=== PATIENT | female | born 1940 | race Caucasian/White ===

== ENCOUNTER 2016-09-03 10:01 | Emergency (ER) | payer MEDICARE, BC ==
[2016-09-03 10:22] VITALS: BP 138/84
--- NOTE | 2016-09-03 11:57 | EDM.PDOC ---
[id number] Complaint: RECTAL BLEEDING Time Seen by Provider: 09/03/16 10:30 Source of Information: Reports: Patient, Provider History Limitations: Reports: No Limitations - History of Present Illness INITIAL COMMENTS - FREE TEXT/NARRATIVE: 76-year-old female with a known history of hemorrhoids developed some diarrhea and some slight abdominal cramping overnight and had 3 episodes of ara bloody stool. It was bright red. She went into the walk-in clinic this morning, a rectal exam found that she did have rectal blood present so she was sent to the emergency room. She has no pain, the cramping is gone. No fevers or chills. She remembers having a colonoscopy but it's probably been 10 years. Severity: Moderate Associated Symptoms: Denies: Diaphoresis, Fever/Chills, Nausea/Vomiting, Shortness of Breath, Weakness - Related Data Allergies Allergy/AdvReac Type Severity Reaction Status Date / Time gluten Allergy unknown Verified 09/03/16 10:40 wheat Allergy Other Verified 09/03/16 10:40 Home Meds: Home Meds Albuterol Sulfate [Albuterol Sulfate HFA] 2 puff IH Q6HR PRN 01/05/13 [History] Aspirin [Halfprin] 81 mg PO DAILY 01/05/13 [History] Cholecalciferol (Vitamin D3) [Vitamin D3] 1,000 unit PO DAILY 01/05/13 [History] Fluticasone Propionate [Flovent] 50 mcg IH DAILY 01/05/13 [History] Furosemide [Lasix] 20 mg PO DAILY 01/05/13 [History] Hydrocodone/Acetaminophen [Hydrocodon-Acetaminophen 5-500] 1 tab PO Q4H PRN 05/19 [History] Isosorbide Mononitrate [Imdur] 30 mg PO DAILY 01/05/13 [History] Loratadine [Claritin] 10 mg PO DAILY 01/05/13 [History] Omeprazole 20 mg PO DAILY 01/05/13 [History] Venlafaxine [Effexor XR] 75 mg PO DAILY 01/05/13 [History] Losartan [Cozaar] 12.5 mg PO BID 11/24/13 [History] Montelukast [Singulair] 10 mg PO DAILY 11/24/13 [History] Simvastatin [Zocor] 20 mg PO BEDTIME 11/24/13 [History] Allopurinol [Zyloprim] 100 mg PO DAILY 04/23/16 [History] Past Medical History HEENT History: Reports: Cataract, Hard of Hearing, Impaired Vision, Sinusitis, Other (See Below) Other HEENT History: meneris Cardiovascular History: Reports: Heart Murmur, Hypertension Gastrointestinal History: Reports: Cholelithiasis, Chronic Constipation, Chronic Diarrhea, GERD, Other (See Below) Other Gastrointestinal History: barrettes esophagus Genitourinary History: Reports: None GORE INSERTER History: Reports: , Other (See Below) Other OB/BYN History: fibroid tumor Musculoskeletal History: Reports: Arthritis, Back Pain, Chronic, Gout Endocrine/Metabolic History: Reports: Obesity/BMI 30+ Hematologic History: Reports: Iron Deficiency - Infectious Disease History Infectious Disease History: Reports: Chicken Pox, Measles, Mumps - Past Surgical History HEENT Surgical History: Reports: Cataract Surgery Female Surgical History: Reports: Hysterectomy, Other (See Below) Musculoskeletal Surgical History: Reports: Hip Replacement Social & Family History - Tobacco Use Smoking Status *Q: Never Smoker Second Hand Smoke Exposure: No - Caffeine Use Caffeine Use: Reports: Coffee, Tea - Alcohol Use Days Per Week of Alcohol Use: 0 - Recreational Drug Use Recreational Drug Use: No ED ROS GENERAL - Review of Systems Review Of Systems: See Below Constitutional: Denies: Fever, Chills, Malaise Respiratory: Denies: Shortness of Breath, Cough Cardiovascular: Denies: Chest Pain GI/Abdominal: Reports: Abdominal Pain (Some cramping over night, now better), Diarrhea, Hematochezia. Denies: Nausea, Vomiting : Reports: No Symptoms Skin: Reports: No Symptoms ED EXAM, GI/ABD - Physical Exam Exam: See Below Exam Limited By: No Limitations General Appearance: Alert, No Apparent Distress Eyes: Bilateral: Normal Appearance (No jaundice) Respiratory/Chest: No Respiratory Distress, Lungs Clear Cardiovascular: Regular Rate, Rhythm GI/Abdominal: Soft, Non-Tender Rectal (Female) Exam: Deferred (Rectal exam was not repeated) Neurological: Alert, Oriented Psychiatric: Anxious Skin Exam: Warm, Dry Course - Vital Signs Last Recorded V/S: Last Vital Signs Temp 98 F 09/03/16 10:36 Pulse 71 09/03/16 10:36 Resp 20 09/03/16 10:36 BP 138/84 09/03/16 10:36 Pulse Ox 96 09/03/16 10:36 - Orders/Labs/Meds Labs: Laboratory Tests 09/03/16 09/03/16 09/03/16 Range/Units 11:13 11:13 11:13 WBC 12.7 H (4.5-11.0) K/uL RBC 4.25 (3.30-5.50) M/uL Hgb 13.5 (12.0-15.0) g/dL Hct 40.4 (36.0-48.0) % MCV 95 (80-98) fL MCH 32 H (27-31) pg MCHC 33 (32-36) % Plt Count 218 (150-400) K/uL Neut % (Auto) 79 H (36-66) % Lymph % (Auto) 13 L (24-44) % [place] % (Auto) 8 H (2-6) % Eos % (Auto) 0 L (2-4) % Baso % (Auto) 0 (0-1) % PT 10.5 (9.5-12.0) sec INR 0.99 (0.80-1.20) Sodium 133 L (140-148) mmol/L Potassium 3.8 (3.6-5.2) mmol/L Chloride 100 (100-108) mmol/L Carbon Dioxide 26 (21-32) mmol/L Anion Gap 10.8 (5.0-14.0) mmol/L BUN 18 (7-18) mg/dL Creatinine 1.2 H (0.6-1.0) mg/dL Est Cr Clr Drug Dosing 28.20 mL/min Estimated GFR (MDRD) 44 L (>60) Glucose 96 (74-106) mg/dL Calcium 8.8 (8.5-10.1) mg/dL Total Bilirubin 0.4 (0.2-1.0) mg/dL AST 29 (15-37) U/L ALT 30 (12-78) U/L Alkaline Phosphatase 92 (46-116) U/L Total Protein 7.6 (6.4-8.2) g/dL Albumin 3.4 (3.4-5.0) g/dL Globulin 4.2 H (2.3-3.5) g/dL Albumin/Globulin Ratio 0.8 L (1.2-2.2) - Re-Assessments/Exams Free Text/Narrative Re-Assessment/Exam: 09/03/16 11:53 A CBC was obtained that showed a normal hemoglobin, 13.5, which is consistent with levels drawn earlier this year at the clinic. INR was 0.99, patient is not anticoagulated does take an aspirin daily. She was observed in the emergency room for over 2 hours and had no additional diarrhea or rectal bleeding. Her case was discussed with surgery, and she will be set up for a colonoscopy on Thursday. She'll be discharged home and can return sooner if bleeding recurs or worsens, or if she develops more pain or other concerns. Departure - Departure Time of Disposition: 12:13 Disposition: Home, Self-Care 01 Condition: good Clinical Impression: Rectal bleed, Abdominal pain - Discharge Information Instructions: Gastrointestinal Bleeding Referrals: Annelise Abdalla PA [Primary Care Provider] - Forms: ED Department Discharge Care Plan Goals: Preparation for colonoscopy on Thursday as recommended. You may still continue to get some diarrheal stool or bleeding, but return anytime if worsening or concerns.
== END 2016-09-03 12:12 | disposition home or self-care (01) ==
LOC: JP.ED 10:01
DX: K62.5 Hemorrhage of anus and rectum (principal); R10.9 Unspecified abdominal pain; I10 Essential (primary) hypertension; K21.9 Gastro-esophageal reflux disease without esophagitis; E66.9 Obesity, unspecified; Z68.30 Body mass index [BMI] 30.0-30.9, adult; Z98.49 Cataract extraction status, unspecified eye; Z90.710 Acquired absence of both cervix and uterus; Z96.649 Presence of unspecified artificial hip joint; Z79.899 Other long term (current) drug therapy; Z79.82 Long term (current) use of aspirin; Z91.018 Allergy to other foods
CPT/HCPCS: 36415; 80053; 85025; 85610; 99283; 99284

== ENCOUNTER 2016-09-05 08:48 | Day surgery (SDC) | payer MEDICARE, BC ==
[2016-09-05] MEDS ORDERED: fentaNYL 100 MCG/2 ML SDV ONE (09:29)
[2016-09-05] MEDS ORDERED: Propofol 200 MG/20 ML SDV ONE (09:29)
[2016-09-05] MEDS ORDERED: Midazolam 1 MG/ML 2 ML SDV ONE (09:29)
[2016-09-05] MEDS ORDERED: Lactated Ringers 1,000 ML IV SCH (09:30)
[2016-09-05 12:55] VITALS: BP 143/83
--- NOTE | 2016-09-07 10:02 | OR ---
DATE OF PROCEDURE: 09/05/2016 PREOPERATIVE DIAGNOSES: Blood in stool. POSTOPERATIVE DIAGNOSES: Diverticulosis, splenic flexure colitis, and blood in stool. PROCEDURE PERFORMED: Colonoscopy to the cecum with biopsy of the splenic flexure colitis. SURGEON: Carloz Hurt MD ANESTHESIA: IV anesthesia with monitored anesthesia care. INDICATIONS: This 76-year-old white female experienced some bloody stools two days ago. She presents to the emergency room. She was there for several hours and had no more bleeding. She was released and referred for a colonoscopy today. She underwent a bowel prep yesterday. She said there was no more blood seen with the bowel prep. She says her last colonoscopic exam was done nine years ago. I counseled her for a colonoscopy with possible biopsy and/or polypectomy including risks and alternatives, and she gave her informed consent to proceed. DESCRIPTION OF PROCEDURE: The patient was placed in the left lateral decubitus position. IV anesthesia was administered by the Anesthesia Service. Time-out was held. A rectal exam performed which was unremarkable. The flexible video Olympus colonoscope was introduced through her anus, up her rectum, and out her colon all way to the cecum. En route, we saw a few scattered left-sided diverticula. There was no bleeding or inflammation associated with them. In the splenic flexure area, we encountered a short area of colitis. Once the cecum was reached, the scope was slowly withdrawn. We saw no additional lesions. We did obtain several biopsies of the area of colitis at the splenic flexure. The scope was retroflexed in the rectum with the distal rectum appearing unremarkable. The scope was straightened and removed. She tolerated the procedure well. Carloz Hurt MD /[id number] MTDD
== END 2016-09-05 13:20 | disposition home or self-care (01) ==
LOC: JP.SDS 08:48
PROVIDERS: ATTEND Surgery
DX: K52.9 Noninfective gastroenteritis and colitis, unspecified (principal); K62.89 Other specified diseases of anus and rectum; J44.9 Chronic obstructive pulmonary disease, unspecified; E11.22 Type 2 diabetes mellitus with diabetic chronic kidney disease; I12.9 Hypertensive chronic kidney disease with stage 1 through stage 4 chronic kidney disease, or unspecified chronic kidney disease; N18.9 Chronic kidney disease, unspecified; Z91.018 Allergy to other foods; Z88.8 Allergy status to other drugs, medicaments and biological substances; K21.9 Gastro-esophageal reflux disease without esophagitis
CPT/HCPCS: 45380; J2250; J2704; J3010; J7120; 88305

== ENCOUNTER 2018-08-11 07:29 | Outpatient (CLI) | payer MEDICARE, BC ==
[~2018-08-11 07:29] MED LIST: Bupivacaine 0.25% 10 ML SDV ONE; Bupivacaine 0.5% 30 ML SDV ONE; methylPREDNISolone Acetate 40 MG/ML SDV ONE
[2018-08-11 08:11] VITALS: BP 142/81; PULSE 53
--- NOTE | 2018-08-11 18:25 | ANES ---
DATE OF SERVICE: 08/11/2018 INDICATIONS: Karime is a 77-year-old female patient referred to us by Annelise Abdalla for epidural steroid injection. Karime has these every 2 months, so is well aware of the risks and benefits related to an ALINA and wishes to proceed with an epidural steroid injection today. Please refer to the doctor's notes for ICD-10 code and diagnosis. TECHNIQUE: The patient was then sat at the edge of bed. Betadine prep x3 to the lumbar region was done. Sterile drape was placed. Lidocaine skin wheal and deep was done. A 17- gauge Tuohy needle was inserted at approximately the L5-S1 position. Loss of resistance was achieved. Negative paresthesia, negative heme, and negative CSF were noted. I then proceeded to give the patient 7 mL of sterile normal saline with 2 mL of 0.25% Sensorcaine and 40 mg of Depo-Medrol. The Tuohy needle was then flushed and withdrawn. Sterile drape was taken down, Betadine was cleaned off her back, and a Band-Aid was applied to the puncture site for hemostasis. The patient tolerated the procedure without difficulty. Please refer to the nurse's notes. After the appropriate amount of time, the patient will be discharged per ACU protocol. Hernan Johnson CRNA /[id number]
== END 2018-08-11 08:40 | disposition home or self-care (01) ==
LOC: JP.PAIN 07:29
PROVIDERS: ATTEND Physician Assistant
DX: M79.10 Myalgia, unspecified site (principal); M54.5 Low back pain
CPT/HCPCS: 62322; J1030; J3490

== ENCOUNTER 2019-09-21 12:21 | Emergency (ER) | payer MEDICARE, BC ==
[2019-09-21] MEDS ORDERED: Aspirin 81 MG Tab.Chew PO ONE (14:18)
--- NOTE | 2019-09-21 14:24 | EDM.PDOC ---
ED HPI GENERAL MEDICAL PROBLEM - General Chief Complaint: General Stated Complaint: UPSET SHE AND SON HAD A DISAGREEMENT Time Seen by Provider: 09/21/19 14:07 Source of Information: Reports: Patient, RN Notes Reviewed History Limitations: Reports: No Limitations - History of Present Illness INITIAL COMMENTS - FREE TEXT/NARRATIVE: 79-year-old female presents emergency department a complaint of chest pain, she has had some chest pressure on and off for the last couple of days she states is very short in duration no nausea or vomiting no diaphoresis no dyspnea no history of cardiac events a remote smoking history as a teenager - Related Data Allergies Allergy/AdvReac Type Severity Reaction Status Date / Time gluten Allergy Rash Verified 09/21/19 12:41 wheat Allergy Rash Verified 09/21/19 12:41 Home Meds: Home Meds Albuterol Sulfate [Albuterol Sulfate HFA] 2 puff IH Q6HR PRN 01/05/13 [History] Aspirin [Halfprin] 81 mg PO DAILY 01/05/13 [History] Cholecalciferol (Vitamin D3) [Vitamin D3] 1,000 unit PO DAILY 01/05/13 [History] Fluticasone Propionate [Flovent] 2 sprays IH DAILY 01/05/13 [History] Furosemide [Lasix] 10 mg PO DAILY 01/05/13 [History] Hydrocodone/Acetaminophen [Hydrocodon-Acetaminophen 5-500] 1 tab PO Q4H PRN 01/05/13 [History] Isosorbide Mononitrate [Imdur] 15 mg PO DAILY 01/05/13 [History] Loratadine [Claritin] 10 mg PO DAILY PRN 01/05/13 [History] Omeprazole 20 mg PO DAILY 01/05/13 [History] Venlafaxine [Effexor XR] 75 mg PO DAILY 01/05/13 [History] Montelukast [Singulair] 10 mg PO DAILY 11/24/13 [History] Simvastatin [Zocor] 20 mg PO BEDTIME 11/24/13 [History] Allopurinol [Zyloprim] 100 mg PO DAILY 04/23/16 [History] Betamethasone Dipropionate [Diprosone 0.05% Oint] 1 applic TOP BID 09/28/17 [History] Metoprolol Tartrate 25 mg PO BID 06/30/18 [History] Mupirocin Oint [Bactroban Oint] 1 cm TOP TID PRN 06/30/18 [History] Past Medical History HEENT History: Reports: Cataract, Hard of Hearing, Impaired Vision, Sinusitis, Other (See Below) Other HEENT History: meneris Cardiovascular History: Reports: Heart Murmur, Hypertension Other Respiratory History: STATES HAS NO LUNG DISEASE BUT ON INHALERS Gastrointestinal History: Reports: Celiac Disease, Cholelithiasis, Chronic Constipation, Chronic Diarrhea, GERD, Other (See Below) Other Gastrointestinal History: barrettes esophagus FACE BOSS History: Reports: Fibroids, , Other (See Below) Other FACE BOSS History: fibroid tumor Musculoskeletal History: Reports: Arthritis, Back Pain, Chronic, Gout Neurological History: Reports: Headaches, Chronic, Other (See Below) Other Neuro History: PT RECEIVES EPIDURAL STEROID INJECTIONS AND TRIGGER POINT INJECTIONS Psychiatric History: Reports: Anxiety, Depression Endocrine/Metabolic History: Reports: Obesity/BMI 30+ Hematologic History: Reports: Blood Transfusion(s), Iron Deficiency Immunologic History: Reports: None Oncologic (Cancer) History: Reports: None Dermatologic History: Reports: Other (See Below) Other Dermatologic History: rash from gluten - Infectious Disease History Infectious Disease History: Reports: Chicken Pox, Measles, Mumps - Past Surgical History Head Surgeries/Procedures: Reports: None HEENT Surgical History: Reports: Cataract Surgery Cardiovascular Surgical History: Reports: None Respiratory Surgical History: Reports: None GI Surgical History: Reports: Colonoscopy, EGD Female Surgical History: Reports: Hysterectomy, Other (See Below) Other Female Surgeries/Procedures: stent in right kidney Endocrine Surgical History: Reports: None Neurological Surgical History: Reports: None Musculoskeletal Surgical History: Reports: Hip Replacement Dermatological Surgical History: Reports: Skin Biopsy Social & Family History - Tobacco Use Smoking Status *Q: Former Smoker Used Tobacco, but Quit: Yes Month/Year Tobacco Last Used: 60 YEARS AGO Second Hand Smoke Exposure: No - Caffeine Use Caffeine Use: Reports: Coffee, Soda - Recreational Drug Use Recreational Drug Use: No ED ROS GENERAL - Review of Systems Review Of Systems: See Below Constitutional: Reports: No Symptoms HEENT: Reports: No Symptoms Respiratory: Reports: No Symptoms Cardiovascular: Reports: Chest Pain GI/Abdominal: Reports: No Symptoms : Reports: No Symptoms Musculoskeletal: Reports: No Symptoms ED EXAM, GENERAL - Physical Exam Exam: See Below Exam Limited By: No Limitations General Appearance: Alert, WD/WN, No Apparent Distress Respiratory/Chest: No Respiratory Distress, Lungs Clear, Normal Breath Sounds, No Accessory Muscle Use, Chest Non-Tender Cardiovascular: Regular Rate, Rhythm, No Murmur GI/Abdominal: Soft, Non-Tender Extremities: No Pedal Edema Course - Vital Signs Last Recorded V/S: Last Vital Signs Temp 97.5 F 09/21/19 13:09 Pulse 89 09/21/19 17:12 Resp 16 09/21/19 17:12 BP 193/114 H 09/21/19 17:12 Pulse Ox 95 09/21/19 17:12 - Orders/Labs/Meds Orders: Active Orders 24 hr Category Date Time Status Cardiac Monitoring [RC] .As Directed Care 09/21/19 14:19 Active EKG Documentation Completion [RC] ASDIRECTED Care 09/21/19 14:19 Active Chest 2V [CR] Stat Exams 09/21/19 14:19 Taken EKG 12 Lead [EK] Stat Ther 09/21/19 14:19 Ordered Labs: Laboratory Tests 09/21/19 09/21/19 09/21/19 Range/Units 14:18 14:25 16:50 WBC 6.0 (4.5-11.0) K/uL RBC 4.43 (3.30-5.50) M/uL Hgb 13.8 (12.0-15.0) g/dL Hct 43.4 (36.0-48.0) % MCV 98 (80-98) fL MCH 31 (27-31) pg MCHC 32 (32-36) % Plt Count 217 (150-400) K/uL Neut % (Auto) 65 (36-66) % Lymph % (Auto) 23 L (24-44) % [place] % (Auto) 10 H (2-6) % Eos % (Auto) 1 L (2-4) % Baso % (Auto) 1 (0-1) % Sodium 139 L (140-148) mmol/L Potassium 4.1 (3.6-5.2) mmol/L Chloride 102 (100-108) mmol/L Carbon Dioxide 29 (21-32) mmol/L Anion Gap 12.1 (5.0-14.0) mmol/L BUN 14 (7-18) mg/dL Creatinine 1.2 H (0.6-1.0) mg/dL Est Cr Clr Drug Dosing 26.86 mL/min Estimated GFR (MDRD) 43 L (>60) Glucose 94 (74-106) mg/dL Calcium 9.2 (8.5-10.1) mg/dL Total Bilirubin 0.4 (0.2-1.0) mg/dL AST 33 (15-37) U/L ALT 39 (12-78) U/L Alkaline Phosphatase 113 (46-116) U/L Troponin I 0.032 0.035 (0.000-0.056) ng/mL Total Protein 7.8 (6.4-8.2) g/dL Albumin 3.9 (3.4-5.0) g/dL Globulin 3.9 H (2.3-3.5) g/dL Albumin/Globulin Ratio 1.0 L (1.2-2.2) Meds: Medications Discontinued Medications Generic Name Dose Route Start Last Admin Trade Name Freq PRN Reason Stop Dose Admin Aspirin 324 mg 09/21/19 14:18 09/21/19 14:32 Aspirin PO 09/21/19 14:19 324 mg ONETIME ONE Administration Departure - Departure Time of Disposition: 17:21 Disposition: Home, Self-Care 01 Condition: Fair Clinical Impression: Atypical chest pain - Discharge Information Instructions: Nonspecific Chest Pain, Adult Referrals: Annelise Abdalla PA [Primary Care Provider] - Forms: ED Department Discharge Additional Instructions: Please followup with your primary care provider in 3-5 days if not better, please call return to the emergency department with worsening of symptoms. Sepsis Event Note (ED) - Evaluation Sepsis Screening Result: No Definite Risk - Focused Exam Vital Signs: Vital Signs Temp Pulse Resp BP Pulse Ox 09/21/19 17:12 89 16 193/114 H 95 09/21/19 15:10 90 18 184/109 H 95 09/21/19 14:10 91 16 195/93 H 97 09/21/19 13:10 82 18 183/90 H 95 09/21/19 13:09 97.5 F 84 18 183/90 H 97 09/21/19 12:53 98 F 79 16 178/91 H 88 L - My Orders Last 24 Hours: My Active Orders 09/21/19 14:19 Cardiac Monitoring [RC] .As Directed EKG Documentation Completion [RC] ASDIRECTED Chest 2V [CR] Stat EKG 12 Lead [EK] Stat - Assessment/Plan Last 24 Hours: My Active Orders 09/21/19 14:19 Cardiac Monitoring [RC] .As Directed EKG Documentation Completion [RC] ASDIRECTED Chest 2V [CR] Stat EKG 12 Lead [EK] Stat Plan: Assessment Acuity = acute Site and laterality = atypical chest pain Etiology = unknown Manifestations = none Location of injury = Home Lab values = CBC, CMP within normal limits troponin negative x2 EKG does demonstrate a right bundle branch block no old EKGs available, chest x-ray I did review films myself I cannot appreciate any acute process, the official read from radiology is pending Plan She remained asymptomatic while in the emergency department however follow-up with her primary care in the next 3 to 5 days for further evaluation This note was dictated using [employer] voice recognition software please call with any questions on syntax or grammar.
[2019-09-21 17:14] VITALS: BP 193/114; PULSE 89
--- NOTE | 2019-09-22 09:58 | CR ---
CHEST: 2 view CLINICAL HISTORY:Chest pain COMPARISON:2014 FINDINGS: The heart size, pulmonary vascularity and hilar structures are normal. No infiltrate effusion or pneumothorax is seen. There are atherosclerotic changes in the aorta. There is a large retrocardiac hiatal hernia. Lungs are hyperaerated. IMPRESSION: No acute cardiopulmonary process.
== END 2019-09-21 17:36 | disposition home or self-care (01) ==
LOC: JP.ED 12:21
DX: R07.89 Other chest pain (principal); I10 Essential (primary) hypertension; M10.9 Gout, unspecified; F41.9 Anxiety disorder, unspecified; F32.9 Major depressive disorder, single episode, unspecified; E66.9 Obesity, unspecified; Z68.30 Body mass index [BMI] 30.0-30.9, adult; K21.9 Gastro-esophageal reflux disease without esophagitis; Z91.048 Other nonmedicinal substance allergy status; Z91.018 Allergy to other foods; Z79.82 Long term (current) use of aspirin; Z79.899 Other long term (current) drug therapy; Z87.891 Personal history of nicotine dependence
CPT/HCPCS: 36415; 71046; 80053; 84484; 85025; 93005; 99285; A9270; 93010; 99284

== ENCOUNTER 2021-02-28 11:56 | Emergency (ER) | payer MEDICARE, BC ==
--- NOTE | 2021-02-28 12:13 | EDM.PDOC ---
ED HPI GENERAL MEDICAL PROBLEM - General Chief Complaint: General Stated Complaint: CONFUSION FOR PAST 2 MONTHS Time Seen by Provider: 02/28/21 12:32 Source of Information: Reports: Patient, Family, RN Notes Reviewed History Limitations: Reports: No Limitations - History of Present Illness INITIAL COMMENTS - FREE TEXT/NARRATIVE: 80-year-old female presents emergency department today complaint of frequency of urination, her family is present they state she is here because they have noticed she is more confused that she has a little bit of change in behavior she is falling more seems to be more weak and she is developed a shuffling gait which is all new. When I tried to pin them down on how long this has been going on they do admit the changes have been going on for the last year - Related Data Allergies Allergy/AdvReac Type Severity Reaction Status Date / Time gluten Allergy Rash Verified 01/02/21 08:45 wheat Allergy Rash Verified 01/02/21 08:45 Home Meds: Home Meds Aspirin [Halfprin] 81 mg PO DAILY 01/05/13 [History] Cholecalciferol (Vitamin D3) [Vitamin D3] 1,000 unit PO DAILY 01/05/13 [History] Fluticasone Propionate [Flovent] 2 sprays IH DAILY 01/05/13 [History] Furosemide [Lasix] 20 mg PO DAILY PRN 01/05/13 [History] Hydrocodone/Acetaminophen [Hydrocodon-Acetaminophen 5-500] 1 tab PO BID PRN 01/05/13 [History] Loratadine [Claritin] 10 mg PO DAILY PRN 01/05/13 [History] Omeprazole 20 mg PO DAILY 01/05/13 [History] Venlafaxine [Effexor XR] 150 mg PO DAILY 01/05/13 [History] Montelukast [Singulair] 10 mg PO DAILY 11/24/13 [History] Simvastatin [Zocor] 20 mg PO BEDTIME 11/24/13 [History] Allopurinol [Zyloprim] 100 mg PO DAILY 04/23/16 [History] Betamethasone Dipropionate [Diprosone 0.05% Oint] 1 applic TOP BID 09/28/17 [History] Metoprolol Tartrate 25 mg PO BID 06/30/18 [History] Mupirocin Oint [Bactroban Oint] 1 cm TOP TID PRN 06/30/18 [History] Albuterol [Ventolin HFA] 1 - 2 inh INH Q4H PRN 02/01/20 [History] Gabapentin [Neurontin] 100 mg PO BID 02/01/20 [History] Losartan [Cozaar] 25 mg PO DAILY 08/29/20 [History] Past Medical History HEENT History: Reports: Cataract, Hard of Hearing, Impaired Vision, Sinusitis, Other (See Below) Other HEENT History: meneris Cardiovascular History: Reports: Heart Murmur, Hypertension Other Respiratory History: STATES HAS NO LUNG DISEASE BUT ON INHALERS Gastrointestinal History: Reports: Celiac Disease, Cholelithiasis, Chronic Constipation, Chronic Diarrhea, GERD, Other (See Below) Other Gastrointestinal History: barrettes esophagus 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: Reports: Fibroids, , Other (See Below) 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: fibroid tumor Musculoskeletal History: Reports: Arthritis, Back Pain, Chronic, Gout Neurological History: Reports: Headaches, Chronic, Other (See Below) Other Neuro History: PT RECEIVES EPIDURAL STEROID INJECTIONS AND TRIGGER POINT INJECTIONS Psychiatric History: Reports: Anxiety, Depression Endocrine/Metabolic History: Reports: Obesity/BMI 30+ Hematologic History: Reports: Blood Transfusion(s), Iron Deficiency Immunologic History: Reports: None Oncologic (Cancer) History: Reports: None Dermatologic History: Reports: Other (See Below) Other Dermatologic History: rash from gluten - Infectious Disease History Infectious Disease History: Reports: Chicken Pox, Measles, Mumps - Past Surgical History Head Surgeries/Procedures: Reports: None HEENT Surgical History: Reports: Cataract Surgery Cardiovascular Surgical History: Reports: None Respiratory Surgical History: Reports: None GI Surgical History: Reports: Colonoscopy, EGD Female Surgical History: Reports: Hysterectomy, Other (See Below) Other Female Surgeries/Procedures: stent in right kidney Endocrine Surgical History: Reports: None Neurological Surgical History: Reports: None Musculoskeletal Surgical History: Reports: Hip Replacement Dermatological Surgical History: Reports: Skin Biopsy Social & Family History - Tobacco Use Tobacco Use Status *Q: Never Tobacco User - Caffeine Use Caffeine Use: Reports: Coffee ED ROS GENERAL - Review of Systems Review Of Systems: See Below Constitutional: Reports: No Symptoms HEENT: Reports: No Symptoms Respiratory: Reports: No Symptoms Cardiovascular: Reports: No Symptoms GI/Abdominal: Reports: No Symptoms : Reports: Frequency Musculoskeletal: Reports: No Symptoms Neurological: Reports: Confusion ED EXAM, GENERAL - Physical Exam Exam: See Below Exam Limited By: No Limitations General Appearance: Alert, WD/WN, No Apparent Distress, Other (Orientated x3) Eye Exam: Bilateral Eye: EOMI, Normal Inspection, PERRL Ears: Normal External Exam, Normal Canal, Hearing Grossly Normal, Normal TMs Nose: Normal Inspection, Normal Mucosa, No Blood Throat/Mouth: Normal Inspection, Normal Lips, Normal Teeth, Normal Gums, Normal Oropharynx, Normal Voice, No Airway Compromise Head: Atraumatic, Normocephalic Neck: Normal Inspection, Supple, Non-Tender, Full Range of Motion Respiratory/Chest: No Respiratory Distress, Lungs Clear, Normal Breath Sounds, No Accessory Muscle Use, Chest Non-Tender Cardiovascular: Regular Rate, Rhythm, No Murmur GI/Abdominal: Soft, Non-Tender Back Exam: Normal Inspection, Full Range of Motion. No: CVA Tenderness (R), CVA Tenderness (L) Extremities: Normal Inspection, Normal Range of Motion, Non-Tender, No Pedal Edema Neurological: Alert, Oriented, CN II-XII Intact, Normal Gait, Normal Reflexes, No Motor/Sensory Deficits Psychiatric: Normal Affect, Normal Mood Skin Exam: Warm, Dry Lymphatic: No Adenopathy #1 Interpretation EKG Date: 02/28/21 Time: 13:39 Rhythm: NSR [place]: Normal P-Wave: Present QRS: Normal ST-T: Normal QT: Normal Comparison: NA - No Prior EKG Course - Vital Signs Last Recorded V/S: Last Vital Signs Temp 95.3 F L 02/28/21 12:05 Pulse 59 L 02/28/21 14:15 Resp 26 H 02/28/21 14:15 BP 166/76 H 02/28/21 14:15 Pulse Ox 91 L 02/28/21 14:15 - Orders/Labs/Meds Orders: Active Orders 24 hr Category Date Time Status Isolation [COMM] Stat Oth 02/28/21 13:14 Ordered EKG 12 Lead [EK] Stat Ther 02/28/21 13:27 Ordered Labs: Laboratory Tests 02/28/21 02/28/21 02/28/21 Range/Units 12:30 12:41 12:41 WBC 6.3 (4.5-11.0) K/uL RBC 4.15 (3.30-5.50) M/uL Hgb 12.6 (12.0-15.0) g/dL Hct 37.9 (36.0-48.0) % MCV 91 (80-98) fL MCH 30 (27-31) pg MCHC 33 (32-36) % Plt Count 260 (150-400) K/uL Neut % (Auto) 78.7 H (36-66) % Lymph % (Auto) 12.0 L (24-44) % [place] % (Auto) 9.0 H (2-6) % Eos % (Auto) 0.0 L (2-4) % Baso % (Auto) 0.3 (0-1) % Sodium 138 L (140-148) mmol/L Potassium 4.2 (3.6-5.2) mmol/L Chloride 100 (100-108) mmol/L Carbon Dioxide 26 (21-32) mmol/L Anion Gap 16.2 H (5.0-14.0) mmol/L BUN 30 H D (7-18) mg/dL Creatinine 1.6 H (0.6-1.0) mg/dL Est Cr Clr Drug Dosing 19.81 mL/min Estimated GFR (MDRD) 31 L (>60) Glucose 121 H (74-106) mg/dL Lactic Acid (0.4-2.0) mmol/L Calcium 8.6 (8.5-10.1) mg/dL Total Bilirubin 0.5 (0.2-1.0) mg/dL AST 42 H (15-37) U/L ALT 31 (12-78) U/L Alkaline Phosphatase 88 (46-116) U/L Troponin I 0.105 H* (0.000-0.056) ng/mL NT-Pro-B Natriuret Pep (5-450) pg/mL Total Protein 7.7 (6.4-8.2) g/dL Albumin 3.3 L (3.4-5.0) g/dL Globulin 4.4 H (2.3-3.5) g/dL Albumin/Globulin Ratio 0.8 L (1.2-2.2) TSH, Ultra Sensitive 1.965 (0.358-3.740) uIU/mL Urine Color Yellow (YELLOW) Urine Appearance Clear (CLEAR) Urine pH 5.5 (5.0-8.0) Ur Specific [place] 1.025 (1.008-1.030) Urine Protein 100 H (NEGATIVE) mg/dL Urine Glucose (UA) Negative (NEGATIVE) mg/dL Urine Ketones Negative (NEGATIVE) mg/dL Urine Occult Blood Negative (NEGATIVE) Urine Nitrite Negative (NEGATIVE) Urine Bilirubin Negative (NEGATIVE) Urine Urobilinogen 0.2 (0.2-1.0) EU/dL Ur Leukocyte Esterase Negative (NEGATIVE) Urine RBC Not seen (0-5) Urine WBC Not seen (0-5) Ur Epithelial Cells Not seen Amorphous Sediment Not seen Urine Bacteria Not seen Urine Mucus Few Ethyl Alcohol mg/dL Influenza Type A RNA (NEGATIVE) RSV RNA (INAAT) (NEGATIVE) Influenza Type B RNA (NEGATIVE) SARS-CoV-2 RNA (ELLEN) (NEGATIVE) 02/28/21 02/28/21 02/28/21 Range/Units 12:41 12:41 13:14 WBC (4.5-11.0) K/uL RBC (3.30-5.50) M/uL Hgb (12.0-15.0) g/dL Hct (36.0-48.0) % MCV (80-98) fL MCH (27-31) pg MCHC (32-36) % Plt Count (150-400) K/uL Neut % (Auto) (36-66) % Lymph % (Auto) (24-44) % [place] % (Auto) (2-6) % Eos % (Auto) (2-4) % Baso % (Auto) (0-1) % Sodium (140-148) mmol/L Potassium (3.6-5.2) mmol/L Chloride (100-108) mmol/L Carbon Dioxide (21-32) mmol/L Anion Gap (5.0-14.0) mmol/L BUN (7-18) mg/dL Creatinine (0.6-1.0) mg/dL Est Cr Clr Drug Dosing mL/min Estimated GFR (MDRD) (>60) Glucose (74-106) mg/dL Lactic Acid 1.4 (0.4-2.0) mmol/L Calcium (8.5-10.1) mg/dL Total Bilirubin (0.2-1.0) mg/dL AST (15-37) U/L ALT (12-78) U/L Alkaline Phosphatase (46-116) U/L Troponin I (0.000-0.056) ng/mL NT-Pro-B Natriuret Pep (5-450) pg/mL Total Protein (6.4-8.2) g/dL Albumin (3.4-5.0) g/dL Globulin (2.3-3.5) g/dL Albumin/Globulin Ratio (1.2-2.2) TSH, Ultra Sensitive (0.358-3.740) uIU/mL Urine Color (YELLOW) Urine Appearance (CLEAR) Urine pH (5.0-8.0) Ur Specific [place] (1.008-1.030) Urine Protein (NEGATIVE) mg/dL Urine Glucose (UA) (NEGATIVE) mg/dL Urine Ketones (NEGATIVE) mg/dL Urine Occult Blood (NEGATIVE) Urine Nitrite (NEGATIVE) Urine Bilirubin (NEGATIVE) Urine Urobilinogen (0.2-1.0) EU/dL Ur Leukocyte Esterase (NEGATIVE) Urine RBC (0-5) Urine WBC (0-5) Ur Epithelial Cells Amorphous Sediment Urine Bacteria Urine Mucus Ethyl Alcohol < 3 mg/dL Influenza Type A RNA Negative (NEGATIVE) RSV RNA (INAAT) Negative (NEGATIVE) Influenza Type B RNA Negative (NEGATIVE) SARS-CoV-2 RNA (ELLEN) Positive H (NEGATIVE) 02/28/21 Range/Units 13:26 WBC (4.5-11.0) K/uL RBC (3.30-5.50) M/uL Hgb (12.0-15.0) g/dL Hct (36.0-48.0) % MCV (80-98) fL MCH (27-31) pg MCHC (32-36) % Plt Count (150-400) K/uL Neut % (Auto) (36-66) % Lymph % (Auto) (24-44) % [place] % (Auto) (2-6) % Eos % (Auto) (2-4) % Baso % (Auto) (0-1) % Sodium (140-148) mmol/L Potassium (3.6-5.2) mmol/L Chloride (100-108) mmol/L Carbon Dioxide (21-32) mmol/L Anion Gap (5.0-14.0) mmol/L BUN (7-18) mg/dL Creatinine (0.6-1.0) mg/dL Est Cr Clr Drug Dosing mL/min Estimated GFR (MDRD) (>60) Glucose (74-106) mg/dL Lactic Acid (0.4-2.0) mmol/L Calcium (8.5-10.1) mg/dL Total Bilirubin (0.2-1.0) mg/dL AST (15-37) U/L ALT (12-78) U/L Alkaline Phosphatase (46-116) U/L Troponin I (0.000-0.056) ng/mL NT-Pro-B Natriuret Pep 986 H (5-450) pg/mL Total Protein (6.4-8.2) g/dL Albumin (3.4-5.0) g/dL Globulin (2.3-3.5) g/dL Albumin/Globulin Ratio (1.2-2.2) TSH, Ultra Sensitive (0.358-3.740) uIU/mL Urine Color (YELLOW) Urine Appearance (CLEAR) Urine pH (5.0-8.0) Ur Specific [place] (1.008-1.030) Urine Protein (NEGATIVE) mg/dL Urine Glucose (UA) (NEGATIVE) mg/dL Urine Ketones (NEGATIVE) mg/dL Urine Occult Blood (NEGATIVE) Urine Nitrite (NEGATIVE) Urine Bilirubin (NEGATIVE) Urine Urobilinogen (0.2-1.0) EU/dL Ur Leukocyte Esterase (NEGATIVE) Urine RBC (0-5) Urine WBC (0-5) Ur Epithelial Cells Amorphous Sediment Urine Bacteria Urine Mucus Ethyl Alcohol mg/dL Influenza Type A RNA (NEGATIVE) RSV RNA (INAAT) (NEGATIVE) Influenza Type B RNA (NEGATIVE) SARS-CoV-2 RNA (ELLEN) (NEGATIVE) Departure - Departure Time of Disposition: 14:28 Disposition: Home, Self-Care 01 Condition: Fair Clinical Impression: Confusion, COVID-19 - Discharge Information Instructions: Confusion, COVID-19: How to Protect Yourself and Others - CDC, 10 Things You Can Do to Manage Your COVID-19 Symptoms at Home - [facility] (10/19/2020) Referrals: Annelise bAdalla PA [Primary Care Provider] - Forms: ED Department Discharge Additional Instructions: Continue with your regular medications please keep your follow-up appointment with your primary care call return to the emergency department worsening of symptoms, maintain quarantine at home., Sepsis Event Note (ED) - Evaluation Sepsis Screening Result: No Definite Risk - Focused Exam Vital Signs: Vital Signs Temp Pulse Resp BP Pulse Ox 02/28/21 14:15 59 L 26 H 166/76 H 91 L 02/28/21 13:26 56 L 15 155/83 H 95 02/28/21 12:58 56 L 163/90 H 02/28/21 12:05 95.3 F L 70 18 130/107 H 94 L - My Orders Last 24 Hours: My Active Orders 02/28/21 13:14 Isolation [COMM] Stat 02/28/21 13:27 EKG 12 Lead [EK] Stat - Assessment/Plan Last 24 Hours: My Active Orders 02/28/21 13:14 Isolation [COMM] Stat 02/28/21 13:27 EKG 12 Lead [EK] Stat Plan: Assessment Acuity = acute Site and laterality = increased confusion Etiology = concern for underlying dementia with small vessel ischemic disease further testing required Manifestations = none Location of injury = Home Lab values = CBC unremarkable creatinine elevated 1.6 consistent chronic renal failure stage G3 B lactic acid normal 1.4 troponin slightly elevated 0.105 she has had troponins in the normal range in the past however now that she is positive for Covid this is an inflammatory marker and I believe this is why this is elevated. BNP slightly elevated 986 of uncertain significance thyroid normal 1.965 urinalysis unremarkable alcohol is negative positive for COVID-19, negative for influenza A and B RSV negative CT scan does show diffuse atrophy with chronic small vessel ischemic disease probably can attributing to the change in mental status over the last year Plan I did review lab work with him recommend the precautions with the Covid unknown date of symptoms that she is really asymptomatic with her Covid, did not receive a vaccine follow-up with primary care for further evaluation on the confusion and dementia work-up This note was dictated using [employer] voice recognition software please call with any questions on syntax or grammar.
--- NOTE | 2021-02-28 13:21 | CT ---
Head wo Cont CLINICAL HISTORY: Head injury, confusion COMPARISON: MR brain 2016 TECHNIQUE: Transverse scans were obtained from the base of the skull through the vertex without IV contrast on a multislice, multidetector CT scanner. Auto dosage reduction and iterative reconstruction techniques employed. FINDINGS: No focal abnormal parenchymal density is identified. There is no mass effect, hemorrhage, or extraaxial collection. There is moderate periventricular and subcortical lucency. The basal cisterns and sulci over the convexities are prominent. The ventricles are prominent. IMPRESSION: Moderate atrophy Moderate chronic ischemic microvascular change No acute intracranial process Moderate diffuse chronic pansinusitis with likely superimposed acute sinusitis with scattered air-fluid levels
[2021-02-28 14:02] LABS: CORONAVIRUS COVID-19 NAA POSITIVE (NEGATIVE)
[2021-02-28 14:16] VITALS: BP 166/76; PULSE 59
== END 2021-02-28 14:48 | disposition home or self-care (01) ==
LOC: JP.ED 11:56
DX: U07.1 COVID-19 (principal); R41.0 Disorientation, unspecified; K21.9 Gastro-esophageal reflux disease without esophagitis; E66.9 Obesity, unspecified; Z68.28 Body mass index [BMI] 28.0-28.9, adult; Z91.018 Allergy to other foods; Z79.82 Long term (current) use of aspirin; Z79.899 Other long term (current) drug therapy
CPT/HCPCS: 0241U; 36415; 70450; 80053; 80307; 81001; 83605; 83880; 84443; 84484; 85025; 93005; 99285

== ENCOUNTER 2021-03-02 09:29 | Observation (INO) | payer MEDICARE, BC ==
--- NOTE | 2021-03-02 09:53 | EDM.PDOC ---
ED HPI GENERAL MEDICAL PROBLEM - General Chief Complaint: General Stated Complaint: MEDICAL VIA [facility] Time Seen by Provider: 03/02/21 09:36 Source of Information: Reports: Patient, EMS, Old Records, RN Notes Reviewed History Limitations: Reports: Physical Impairment - History of Present Illness INITIAL COMMENTS - FREE TEXT/NARRATIVE: 80-year-old female presents emergency department today via EMS services for increasing falls. She has had multiple falls over the last couple months I did have the opportunity to see her on 28 February 2 days prior. At that time she was with her family they are concerned about increasing memory and confusion evaluation at that time blood work CT scan consistent with small chronic small vessel ischemic disease probable dementia. She is positive for Covid as well however unknown date of onset of symptoms therefore she was not a candidate for monoclonal antibody therapy treatment. - Related Data Allergies Allergy/AdvReac Type Severity Reaction Status Date / Time gluten Allergy Rash Verified 03/02/21 09:35 wheat Allergy Rash Verified 03/02/21 09:35 Home Meds: Home Meds Aspirin [Halfprin] 81 mg PO DAILY 01/05/13 [History] Cholecalciferol (Vitamin D3) [Vitamin D3] 1,000 unit PO DAILY 01/05/13 [History] Fluticasone Propionate [Flovent] 2 sprays IH DAILY 01/05/13 [History] Furosemide [Lasix] 20 mg PO DAILY PRN 01/05/13 [History] Hydrocodone/Acetaminophen [Hydrocodon-Acetaminophen 5-500] 1 tab PO BID PRN 01/05/13 [History] Loratadine [Claritin] 10 mg PO DAILY PRN 01/05/13 [History] Omeprazole 20 mg PO DAILY 01/05/13 [History] Venlafaxine [Effexor XR] 150 mg PO DAILY 01/05/13 [History] Montelukast [Singulair] 10 mg PO DAILY 11/24/13 [History] Simvastatin [Zocor] 20 mg PO BEDTIME 11/24/13 [History] Allopurinol [Zyloprim] 100 mg PO DAILY 04/23/16 [History] Betamethasone Dipropionate [Diprosone 0.05% Oint] 1 applic TOP BID 09/28/17 [History] Metoprolol Tartrate 25 mg PO BID 06/30/18 [History] Mupirocin Oint [Bactroban Oint] 1 cm TOP TID PRN 06/30/18 [History] Albuterol [Ventolin HFA] 1 - 2 inh INH Q4H PRN 02/01/20 [History] Gabapentin [Neurontin] 100 mg PO BID 02/01/20 [History] Losartan [Cozaar] 25 mg PO DAILY 08/29/20 [History] Past Medical History HEENT History: Reports: Cataract, Hard of Hearing, Impaired Vision, Sinusitis, Other (See Below) Other HEENT History: meneris Cardiovascular History: Reports: Heart Murmur, Hypertension Other Respiratory History: STATES HAS NO LUNG DISEASE BUT ON INHALERS Gastrointestinal History: Reports: Celiac Disease, Cholelithiasis, Chronic Constipation, Chronic Diarrhea, GERD, Other (See Below) Other Gastrointestinal History: barrettes esophagus SPECIAL AGENT IN CHARGE History: Reports: Fibroids, , Other (See Below) Other SPECIAL AGENT IN CHARGE History: fibroid tumor Musculoskeletal History: Reports: Arthritis, Back Pain, Chronic, Gout Neurological History: Reports: Headaches, Chronic, Other (See Below) Other Neuro History: PT RECEIVES EPIDURAL STEROID INJECTIONS AND TRIGGER POINT INJECTIONS Psychiatric History: Reports: Anxiety, Depression Endocrine/Metabolic History: Reports: Obesity/BMI 30+ Hematologic History: Reports: Blood Transfusion(s), Iron Deficiency Immunologic History: Reports: None Oncologic (Cancer) History: Reports: None Dermatologic History: Reports: Other (See Below) Other Dermatologic History: rash from gluten - Infectious Disease History Infectious Disease History: Reports: Chicken Pox, Measles, Mumps - Past Surgical History Head Surgeries/Procedures: Reports: None HEENT Surgical History: Reports: Cataract Surgery Cardiovascular Surgical History: Reports: None Respiratory Surgical History: Reports: None GI Surgical History: Reports: Colonoscopy, EGD Female Surgical History: Reports: Hysterectomy, Other (See Below) Other Female Surgeries/Procedures: stent in right kidney Endocrine Surgical History: Reports: None Neurological Surgical History: Reports: None Musculoskeletal Surgical History: Reports: Hip Replacement Dermatological Surgical History: Reports: Skin Biopsy Social & Family History - Caffeine Use Caffeine Use: Reports: Coffee ED ROS GENERAL - Review of Systems Review Of Systems: Unable To Obtain Reason Not Obtained: Dementia please see HPI for details ED EXAM, GENERAL - Physical Exam Exam: See Below Exam Limited By: Physical Impairment General Appearance: Alert, No Apparent Distress Eye Exam: Bilateral Eye: Normal Inspection Respiratory/Chest: No Respiratory Distress, Lungs Clear, Normal Breath Sounds, No Accessory Muscle Use, Chest Non-Tender Cardiovascular: Regular Rate, Rhythm, No Murmur GI/Abdominal: Soft, Non-Tender Course - Vital Signs Last Recorded V/S: Last Vital Signs Temp 98.1 F 03/02/21 09:31 Pulse 82 03/02/21 16:41 Resp 16 03/02/21 15:29 BP 165/78 H 03/02/21 16:41 Pulse Ox 95 03/02/21 16:41 - Orders/Labs/Meds Orders: Active Orders 24 hr Category Date Time Status Peripheral IV Care [RC] . DIRECTED Care 03/02/21 15:29 Active Lactated Ringers [Ringers, Lactated] 1,000 ml Med 03/02/21 15:30 Active IV ASDIRECTED Sodium Chloride 0.9% [Saline Flush] Med 03/02/21 15:29 Active 10 ml FLUSH ASDIRECTED PRN Peripheral IV Insertion Adult [OM.PC] Urgent Oth 03/02/21 15:29 Ordered Medication Orders Lactated Ringer's (Ringers, Lactated) 1,000 mls @ 0 mls/hr IV ASDIRECTED LATOSHA Last Admin: 03/02/21 16:02 Dose: 25 mls/hr Documented by: MICHEL Sodium Chloride (Sodium Chloride 0.9% 10 Ml Syringe) 10 ml FLUSH ASDIRECTED PRN PRN Reason: Keep Vein Open Last Admin: 03/02/21 15:59 Dose: 10 ml Documented by: MICHEL Labs: Laboratory Tests 03/02/21 03/02/21 03/02/21 Range/Units 10:20 10:20 10:20 WBC 7.3 (4.5-11.0) K/uL RBC 4.37 (3.30-5.50) M/uL Hgb 13.2 (12.0-15.0) g/dL Hct 39.5 (36.0-48.0) % MCV 90 (80-98) fL MCH 30 (27-31) pg MCHC 33 (32-36) % Plt Count 292 (150-400) K/uL Neut % (Auto) 82.3 H (36-66) % Lymph % (Auto) 9.7 L (24-44) % [place] % (Auto) 7.9 H (2-6) % Eos % (Auto) 0.0 L (2-4) % Baso % (Auto) 0.1 (0-1) % Sodium 135 L (140-148) mmol/L Potassium 4.1 (3.6-5.2) mmol/L Chloride 97 L (100-108) mmol/L Carbon Dioxide 26 (21-32) mmol/L Anion Gap 16.1 H (5.0-14.0) mmol/L BUN 30 H (7-18) mg/dL Creatinine 1.5 H (0.6-1.0) mg/dL Est Cr Clr Drug Dosing 22.20 mL/min Estimated GFR (MDRD) 33 L (>60) Glucose 107 H (74-106) mg/dL Lactic Acid (0.4-2.0) mmol/L Calcium 8.6 (8.5-10.1) mg/dL Troponin I 0.084 H* (0.000-0.056) ng/mL 03/02/21 Range/Units 10:20 WBC (4.5-11.0) K/uL RBC (3.30-5.50) M/uL Hgb (12.0-15.0) g/dL Hct (36.0-48.0) % MCV (80-98) fL MCH (27-31) pg MCHC (32-36) % Plt Count (150-400) K/uL Neut % (Auto) (36-66) % Lymph % (Auto) (24-44) % [place] % (Auto) (2-6) % Eos % (Auto) (2-4) % Baso % (Auto) (0-1) % Sodium (140-148) mmol/L Potassium (3.6-5.2) mmol/L Chloride (100-108) mmol/L Carbon Dioxide (21-32) mmol/L Anion Gap (5.0-14.0) mmol/L BUN (7-18) mg/dL Creatinine (0.6-1.0) mg/dL Est Cr Clr Drug Dosing mL/min Estimated GFR (MDRD) (>60) Glucose (74-106) mg/dL Lactic Acid 1.7 (0.4-2.0) mmol/L Calcium (8.5-10.1) mg/dL Troponin I (0.000-0.056) ng/mL Meds: Medications Generic Name Dose Route Start Last Admin Trade Name Freq PRN Reason Stop Dose Admin Lactated Ringer's 1,000 mls @ 0 mls/hr 03/02/21 15:30 03/02/21 16:02 Ringers, Lactated IV 25 mls/hr ASDIRECTED LATOSHA Administration KVO Sodium Chloride 10 ml 03/02/21 15:29 03/02/21 15:59 Sodium Chloride 0.9% 10 Ml Syringe FLUSH 10 ml ASDIRECTED PRN Administration Keep Vein Open Departure - Departure Time of Disposition: 18:40 Disposition: Home, Self-Care 01 Condition: Poor Clinical Impression: Weakness, COVID-19 - Discharge Information Instructions: Weakness Referrals: PCP,None [Primary Care Provider] - Forms: ED Department Discharge Additional Instructions: Continue with your current medications,, recommend following up with primary care for further evaluation in the work-up of dementia and then considering moving to assisted living or group home placement or options for home assistance call return to the emergency department worsening of symptoms Sepsis Event Note (ED) - Evaluation Sepsis Screening Result: No Definite Risk - Focused Exam Vital Signs: Vital Signs Temp Pulse Resp BP Pulse Ox 03/02/21 16:41 82 165/78 H 95 03/02/21 15:29 77 16 144/82 H 94 L 03/02/21 15:19 77 128/106 H 92 L 03/02/21 13:29 84 152/83 H 93 L 03/02/21 13:04 74 158/81 H 94 L 03/02/21 12:29 74 158/81 H 94 L 03/02/21 11:56 78 150/96 H 96 03/02/21 11:35 78 150/96 H 95 03/02/21 10:47 76 143/100 H 93 L 03/02/21 09:31 98.1 F 73 20 148/93 H 93 L - My Orders Last 24 Hours: My Active Orders 03/02/21 15:29 Peripheral IV Care [RC] . DIRECTED Sodium Chloride 0.9% [Saline Flush] 10 ml FLUSH ASDIRECTED PRN Peripheral IV Insertion Adult [OM.PC] Urgent 03/02/21 15:30 Lactated Ringers [Ringers, Lactated] 1,000 ml IV ASDIRECTED - Assessment/Plan Last 24 Hours: My Active Orders 03/02/21 15:29 Peripheral IV Care [RC] . DIRECTED Sodium Chloride 0.9% [Saline Flush] 10 ml FLUSH ASDIRECTED PRN Peripheral IV Insertion Adult [OM.PC] Urgent 03/02/21 15:30 Lactated Ringers [Ringers, Lactated] 1,000 ml IV ASDIRECTED Plan: Assessment Acuity = acute Site and laterality = patient is weakness, COVID-19 Etiology = multifactorial Manifestations = none Location of injury = Home Lab values = CBC unremarkable creatinine elevated 1.5 consistent with chronic renal failure stage G3 B troponin elevated 0.084 however this is improved from prior troponin believe this is probably related to an inflammatory response due to the Covid Plan Family decided to take her home they will try and get more help at home and try and work towards group home placement This note was dictated using [employer] voice recognition software please call with any questions on syntax or grammar.
[2021-03-02] MEDS ORDERED: Sodium Chloride 0.9% 10 ML Syringe FLUSH PRN (15:29)
[2021-03-02] MEDS ORDERED: Lactated Ringers 1,000 ML IV SCH (15:30)
[2021-03-03] MEDS ORDERED: LORATADINE 5 MG/5 ML PO PRN (09:05)
[2021-03-03] MEDS ORDERED: Albuterol 8 GM Inhaler INH PRN (09:05)
[2021-03-03] MEDS ORDERED: HYDROCODONE PO PRN (09:05)
[2021-03-03] MEDS ORDERED: ACETAMINOPHEN PO PRN (09:05)
[2021-03-03] MEDS ORDERED: [UNRECOGNIZED DRUG - OTHER] PO PRN (09:05)
[2021-03-03] MEDS ORDERED: Mupirocin Oint 22 GM Tube TOP PRN (09:05)
[2021-03-03] MEDS ORDERED: Furosemide 40 MG Tab PO PRN (09:05)
[2021-03-03] MEDS ORDERED: Non-Formulary Medication 1 Each (Omeprazole [Omeprazole] 20 MG Cap.Sr) PO SCH (09:15)
[2021-03-03] MEDS ORDERED: FLUTICASONE PROPIONATE 50 MCG IH SCH (09:15)
[2021-03-03] MEDS ORDERED: Montelukast 10 MG Tab PO SCH (09:15)
[2021-03-03] MEDS ORDERED: Cholecalciferol (Vitamin D3) 25 MCG Tab PO SCH (09:15)
[2021-03-03] MEDS ORDERED: Acetaminophen/HYDROcodone 325-5 MG Tab PO PRN (09:41)
[2021-03-03] MEDS ORDERED: Loratadine 10 MG Tab.DIS PO PRN (09:43)
[2021-03-03] MEDS: Losartan 25 MG Tab PO SCH (09:58)
[2021-03-03] MEDS: Venlafaxine 75 MG Cap.ER PO SCH (10:00)
[2021-03-03] MEDS: Aspirin 81 MG Tab.EC PO SCH (10:01)
[2021-03-03] MEDS: Metoprolol Tartrate 25 MG Tab PO SCH ×2 (10:01→22:13)
[2021-03-03] MEDS: atorvaSTATin 10 MG Tab PO SCH (10:01)
[2021-03-03] MEDS: Allopurinol 100 MG Tab PO SCH (10:02)
[2021-03-03] MEDS: Gabapentin 100 MG Cap PO SCH ×2 (10:02→22:14)
[2021-03-03] MEDS: Pantoprazole 40 MG Tab.CR PO SCH (12:59)
--- NOTE | 2021-03-03 16:34 | PCM.HP.2 ---
H&P History of Present Illness - General Date of Service: 03/03/21 Admit Problem/Dx: Admission Diagnosis/Problem Admission Diagnosis/Problem Weakness Source of Information: Family, Provider, RN Notes Reviewed History Limitations: Reports: No Limitations - History of Present Illness Initial Comments - Free Text/Narative: Ms. Luther is an 80-year-old woman who is admitted to observation status through the emergency department with recent history of progressive weakness. Ms. Luther has significant cognitive impairment and is unable to provide meaningful information concerning recent symptoms or review of systems. Most of history is obtained from her significant other. There is a history of progressive weakness over the past few months and associated with this has been a decline in cognitive function. Oral intake is also been decreased and she has experienced some weight loss. She was seen and evaluated in the emergency department 3 days ago. At that time she was found to be Covid positive with no hypoxia. Her significant other reports that he was found to be positive for Covid in early February and about the same time she developed a cough. She has not been vaccinated and did not received monoclonal antibody earlier in the month. Evaluation was otherwise unremarkable with no significant abnormalities noted including CT scan of the head. The only finding on the CT scan was evidence of sinusitis. She returned yesterday because of profound weakness and inability of her significant other to provide ongoing care for her at home. She has been boarded in the emergency department since that time and has remained fairly stable. - Related Data Allergies/Adverse Reactions: Allergies Allergy/AdvReac Type Severity Reaction Status Date / Time gluten Allergy Rash Verified 03/02/21 09:35 wheat Allergy Rash Verified 03/02/21 09:35 Home Medications: Home Meds Aspirin [Halfprin] 81 mg PO DAILY 01/05/13 [History] Cholecalciferol (Vitamin D3) [Vitamin D3] 1,000 unit PO DAILY 01/05/13 [History] Fluticasone Propionate [Flovent] 2 sprays IH DAILY 01/05/13 [History] Furosemide [Lasix] 20 mg PO DAILY PRN 01/05/13 [History] Hydrocodone/Acetaminophen [Hydrocodon-Acetaminophen 5-500] 1 tab PO BID PRN 01/05/13 [History] Loratadine [Claritin] 10 mg PO DAILY PRN 01/05/13 [History] Omeprazole 20 mg PO DAILY 10/02/13 [History] Venlafaxine [Effexor XR] 150 mg PO DAILY 01/05/13 [History] Montelukast [Singulair] 10 mg PO DAILY 11/24/13 [History] Simvastatin [Zocor] 20 mg PO BEDTIME 11/24/13 [History] Allopurinol [Zyloprim] 100 mg PO DAILY 04/23/16 [History] Betamethasone Dipropionate [Diprosone 0.05% Oint] 1 applic TOP BID 09/28/17 [History] Metoprolol Tartrate 25 mg PO BID 06/30/18 [History] Mupirocin Oint [Bactroban Oint] 1 cm TOP TID PRN 06/30/18 [History] Albuterol [Ventolin HFA] 1 - 2 inh INH Q4H PRN 02/01/20 [History] Gabapentin [Neurontin] 100 mg PO BID 02/01/20 [History] Losartan [Cozaar] 25 mg PO DAILY 08/29/20 [History] Past Medical History HEENT History: Reports: Cataract, Hard of Hearing, Impaired Vision, Sinusitis, Other (See Below) Other HEENT History: meneris Cardiovascular History: Reports: Heart Murmur, Hypertension Other Respiratory History: STATES HAS NO LUNG DISEASE BUT ON INHALERS Gastrointestinal History: Reports: Celiac Disease, Cholelithiasis, Chronic Constipation, Chronic Diarrhea, GERD, Other (See Below) Other Gastrointestinal History: barrettes esophagus Genitourinary History: Reports: None 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[employer]ORER History: Reports: Fibroids, , Other (See Below) Other OB/BYN History: fibroid tumor Musculoskeletal History: Reports: Arthritis, Back Pain, Chronic, Gout Neurological History: Reports: Headaches, Chronic, Other (See Below) Other Neuro History: PT RECEIVES EPIDURAL STEROID INJECTIONS AND TRIGGER POINT INJECTIONS Psychiatric History: Reports: Anxiety, Depression Endocrine/Metabolic History: Reports: Obesity/BMI 30+ Hematologic History: Reports: Blood Transfusion(s), Iron Deficiency Immunologic History: Reports: None Oncologic (Cancer) History: Reports: None Dermatologic History: Reports: Other (See Below) Other Dermatologic History: rash from gluten - Infectious Disease History Infectious Disease History: Reports: Chicken Pox, Measles, Mumps - Past Surgical History Head Surgeries/Procedures: Reports: None HEENT Surgical History: Reports: Cataract Surgery Cardiovascular Surgical History: Reports: None Respiratory Surgical History: Reports: None GI Surgical History: Reports: Colonoscopy, EGD Female Surgical History: Reports: Hysterectomy, Other (See Below) Other Female Surgeries/Procedures: stent in right kidney Endocrine Surgical History: Reports: None Neurological Surgical History: Reports: None Musculoskeletal Surgical History: Reports: Hip Replacement Dermatological Surgical History: Reports: Skin Biopsy Social & Family History - Tobacco Use Tobacco Use Status *Q: Unknown Ever Used Tobacco - Caffeine Use Caffeine Use: Reports: Coffee H&P Review of Systems - Review of Systems: Review Of Systems: See Below General: Reports: ROS unobtainable (Dementia with confusion) Exam - Exam Exam: See Below - Vital Signs Vital Signs: Last Vital Signs Temp 98.8 F 03/03/21 08:01 Pulse 52 L 03/03/21 16:23 Resp 15 03/03/21 16:23 BP 124/68 03/03/21 16:23 Pulse Ox 97 03/03/21 16:23 Weight: 140 lb - Exam Quality Assessment: DVT Prophylaxis General: Alert, Cooperative, Mild Distress. No: Oriented HEENT: Conjunctiva Clear, Hearing Intact, Mucosa Moist & [place], Normal Nasal Septum, Posterior Pharynx Clear, Pupils Equal Neck: Supple, Trachea Midline, +2 Carotid Pulse wo Bruit Lungs: Clear to Auscultation, Normal Respiratory Effort Cardiovascular: Regular Rate, Regular Rhythm, Normal S1, Normal S2. No: Systolic Murmur, Diastolic Murmur GI/Abdominal Exam: Soft, Non-Tender, No Organomegaly, No Distention Back Exam: Normal Inspection, Full Range of Motion Extremities: Non-Tender, No Pedal Edema Skin: Warm, Dry, Intact Neurological: Cranial Nerves Intact, Strength Equal Bilateral, Normal Speech, Normal Tone, Sensation Intact. No: Focal Deficit Neuro Extensive - Mental Status: Alert, Disorientation to Place, Disorientation to Time, Memory Loss-Remote Events, Memory Loss-Recent Events. No: Oriented x3, Normal Cognition, Memory Intact - Patient Data Result Diagrams: 03/02/21 10:20 03/02/21 10:20 Sepsis Event Note - Evaluation Sepsis Screening Result: No Definite Risk - Focused Exam Vital Signs: Vital Signs Temp Pulse Pulse Resp BP BP Pulse Ox 03/03/21 16:23 52 L 15 124/68 97 03/03/21 14:05 58 L 135/81 96 03/03/21 10:01 78 158/95 H 03/03/21 09:58 158/95 H 03/03/21 08:01 98.8 F 03/03/21 08:00 72 14 166/90 H 95 03/03/21 05:02 82 16 169/100 H 93 L *Q Meaningful Use (ADM) - VTE Risk Assess *Q Each Risk Factor Represents 1 Point: Obesity ( BMI > 25 kg/m2) Total Score 1 Point Risk Factors: 1 Each Risk Factor Represents 2 Points: None Total Score 2 Point Risk Factors: 0 Each Risk Factor Represents 3 Points: Age 75 Years or Greater Total Score 3 Point Risk Factors: 3 Each Risk Factor Represents 5 Points: None Total Score 5 Point Risk Factors: 0 Venous Thromboembolism Risk Factor Score *Q: 4 Problem List Initiated/Reviewed/Updated: Yes Orders Last 24hrs: Active Orders 24 hr Category Date Time Status Patient Status Manage Transfer [TRANSFER] Routine ADT 03/03/21 16:18 Active Patient Status [ADT] Routine ADT 03/03/21 09:03 Active Intake and Output [RC] PER UNIT ROUTINE Care 03/03/21 09:05 Active Peripheral IV Care [RC] . DIRECTED Care 03/02/21 15:29 Active RT Aerosol Therapy [RC] ASDIRECTED Care 03/03/21 09:07 Active RT Post Treatment Assessment [RC] Click to Edit Care 03/03/21 09:07 Active Up With Assistance [RC] ASDIRECTED Care 03/03/21 09:03 Active Vital Signs [RC] Q4H Care 03/03/21 09:03 Active Consult to Occupational Therapy [OT Evaluation and Cons 03/03/21 10:39 Active Treatment] [CONS] Routine PT Evaluation and Treatment [CONS] Routine Cons 03/03/21 10:39 Active Regular Diet [DIET] Diet 03/03/21 Lunch Active Acetaminophen/HYDROcodone [[place] 325-5 MG] Med 03/03/21 09:41 Active 1 tab PO BID PRN Albuterol [Ventolin HFA] Med 03/03/21 09:05 Active 0 gm INH Q4H PRN Aspirin [Halfprin] Med 03/03/21 09:15 Active 81 mg PO DAILY Betamethasone Dipropionate [Diprosone 0.05% Oint] Med 03/03/21 09:15 Active 0 gm TOP BID Cholecalciferol (Vitamin D3) [Vitamin D3] Med 03/03/21 09:15 Active 25 mcg PO DAILY Fluticasone Propionate [Flovent] Med 03/03/21 09:15 Active 2 sprays IH DAILY Furosemide [Lasix] Med 03/03/21 09:05 Active 20 mg PO DAILY PRN Gabapentin [Neurontin] Med 03/03/21 09:15 Active 100 mg PO BID Lactated Ringers [Ringers, Lactated] 1,000 ml Med 03/02/21 15:30 Active IV ASDIRECTED Loratadine [Claritin RediTabs] Med 03/03/21 09:43 Active 10 mg PO DAILY PRN Losartan [Cozaar] Med 03/03/21 09:15 Active 25 mg PO DAILY Metoprolol Tartrate [Lopressor] Med 03/03/21 09:15 Active 25 mg PO BID Montelukast [Singulair] Med 03/03/21 17:00 Active 10 mg PO QPM Mupirocin Oint [Bactroban Oint] Med 03/03/21 09:05 Active 0 gm TOP TID PRN Pantoprazole [ProTONIX] Med 03/03/21 11:30 Active 40 mg PO ACBREAKFAST Sodium Chloride 0.9% [Saline Flush] Med 03/02/21 15:29 Active 10 ml FLUSH ASDIRECTED PRN Venlafaxine [Effexor XR] Med 03/03/21 09:15 Active 150 mg PO DAILY allopurinoL [Zyloprim] Med 03/03/21 09:15 Active 100 mg PO DAILY atorvaSTATin [Lipitor] Med 03/03/21 10:00 Active 10 mg PO DAILY Peripheral IV Insertion Adult [OM.PC] Urgent Oth 03/02/21 15:29 Ordered Resuscitation Status Routine Resus Stat 03/03/21 16:21 Ordered Medication Orders Hydrocodone Bitart/Acetaminophen (Acetaminophen/Hydrocodone 325-5 Mg Tab) 1 tab PO BID PRN PRN Reason: PAIN Albuterol (Albuterol 8 Gm Inhaler) 0 gm INH Q4H PRN PRN Reason: Shortness of Breath Allopurinol (Allopurinol 100 Mg Tab) 100 mg PO DAILY [facility] Last Admin: 03/03/21 10:02 Dose: 100 mg Documented by: BRUCE Aspirin (Aspirin 81 Mg Tab.Ec) 81 mg PO DAILY [facility] Last Admin: 03/03/21 10:01 Dose: 81 mg Documented by: BRUCE Atorvastatin Calcium (Atorvastatin 10 Mg Tab) 10 mg PO DAILY [facility] Last Admin: 03/03/21 10:01 Dose: 10 mg Documented by: BRUCE Betamethasone Dipropionate (Betamethasone Dipropionate 0.05% Oint 15 Gm Tube) 0 gm TOP BID [facility] Last Admin: 03/03/21 12:51 Dose: Not Given Documented by: BRUCE Cholecalciferol (Cholecalciferol (Vitamin D3) 25 Mcg Tab) 25 mcg PO DAILY [facility] Last Admin: 03/03/21 10:02 Dose: 25 mcg Documented by: BRUCE Furosemide (Furosemide 40 Mg Tab) 20 mg PO DAILY PRN PRN Reason: Edema Gabapentin (Gabapentin 100 Mg Cap) 100 mg PO BID [facility] Last Admin: 03/03/21 10:02 Dose: 100 mg Documented by: BRUCE Lactated Ringer's (Ringers, Lactated) 1,000 mls @ 0 mls/hr IV ASDIRECTED [facility] Last Admin: 03/02/21 16:02 Dose: 25 mls/hr Documented by: MICHEL Loratadine (Loratadine 10 Mg Tab.Dis) 10 mg PO DAILY PRN PRN Reason: Allergies Losartan Potassium (Losartan 25 Mg Tab) 25 mg PO DAILY [facility] Last Admin: 03/03/21 09:58 Dose: 25 mg Documented by: RBUCE Metoprolol Tartrate (Metoprolol Tartrate 25 Mg Tab) 25 mg PO BID [facility] Last Admin: 03/03/21 10:01 Dose: 25 mg Documented by: BRUCE Montelukast Sodium (Montelukast 10 Mg Tab) 10 mg PO QPM [facility] Mupirocin (Mupirocin Oint 22 Gm Tube) 0 gm TOP TID PRN PRN Reason: Rash Non-Formulary Medication (Fluticasone Propionate [Flovent]) 2 sprays IH DAILY [facility] Last Admin: 03/03/21 12:57 Dose: Not Given Documented by: BRUCE Pantoprazole Sodium (Pantoprazole 40 Mg Tab.Cr) 40 mg PO ACBREAKFAST [facility] Last Admin: 03/03/21 12:59 Dose: 40 mg Documented by: BRUCE Sodium Chloride (Sodium Chloride 0.9% 10 Ml Syringe) 10 ml FLUSH ASDIRECTED PRN PRN Reason: Keep Vein Open Last Admin: 03/02/21 15:59 Dose: 10 ml Documented by: MICHEL Venlafaxine HCl (Venlafaxine 75 Mg Cap.Er) 150 mg PO DAILY [facility] Last Admin: 03/03/21 10:00 Dose: 150 mg Documented by: BRUCE Assessment/Plan Comment:: ASSESSMENT AND PLAN [id number] has been symptomatic for the past 3 weeks, just tested positive 3 days ago. This is likely been a contributing factor in her decline over the past few weeks. -No further intervention required at this time GENERALIZED WEAKNESS-this is likely multifactorial related to her progressive dementia and recent COVID-19 infection. No other underlying factors identified to this point other than sinus infection. -Physical therapy consult in a.m. -Treat sinusitis -MRI without contrast in a.m. -Echocardiogram in a.m. SINUSITIS-evidence of acute infection noted on recent CT scan -Augmentin 875 p.o. twice daily x1 week, then reassess ELEVATED TROPONIN-no evidence of acute IA on EKG. Mild elevation may be related to recent Covid infection -Follow-up troponin in the a.m. CHRONIC KIDNEY DISEASE STAGE IIIb -Closely monitor urine output and renal function PROGRESSIVE DEMENTIA MAINTENANCE ISSUES -DVT prophylaxis; enoxaparin 30 mg subcu daily -GI prophylaxis; not indicated -[place] catheter; not indicated -Nutrition; 2 g sodium diet -Nicotine dependence; not required CODE STATUS-FULL CODE ADMISSION STATUS-this patient will be admitted to observation status, expect no more than a one night hospital stay for evaluation and management of problems as outlined above. DISPOSITION-anticipate discharge to home after the hospital stay. - Mortality Measure Prognosis:: Good
[2021-03-03] MEDS ORDERED: Albuterol 0.083% 2.5 MG/3 ML Neb Soln NEB PRN (16:49)
[2021-03-03] MEDS ORDERED: Sodium Chloride 0.9% 10 ML Syringe FLUSH PRN (16:49)
[2021-03-03] MEDS ORDERED: Polyethylene Glycol 3350 Powder 17 GM Packet PO PRN (16:49)
[2021-03-03] MEDS ORDERED: Ondansetron 4 MG/2 ML SDV IV PRN (16:49)
[2021-03-03] MEDS: Acetaminophen 325 MG Tab PO PRN (17:27)
[2021-03-03] MEDS: Enoxaparin 30 MG/0.3 ML Syringe SUBCUT SCH ×2 (17:40→22:17)
[2021-03-03] MEDS: Amoxicillin/Clavulanate K 875-125 MG Tab PO SCH (17:40)
[2021-03-03] MEDS: Montelukast 10 MG Tab PO SCH (17:40)
[2021-03-03] MEDS ORDERED: Non-Formulary Medication 1 Each (Simvastatin [Zocor] 20 MG Tablet) PO SCH (21:00)
[2021-03-04] MEDS: Pantoprazole 40 MG Tab.CR PO SCH (08:00)
[2021-03-04] MEDS: Allopurinol 100 MG Tab PO SCH (09:17)
[2021-03-04] MEDS: Gabapentin 100 MG Cap PO SCH (09:17)
[2021-03-04] MEDS: Amoxicillin/Clavulanate K 875-125 MG Tab PO SCH (09:17)
[2021-03-04] MEDS: Losartan 25 MG Tab PO SCH (09:18)
[2021-03-04] MEDS: Metoprolol Tartrate 25 MG Tab PO SCH ×2 (09:18→20:00)
[2021-03-04] MEDS: atorvaSTATin 10 MG Tab PO SCH (09:18)
[2021-03-04] MEDS: Venlafaxine 75 MG Cap.ER PO SCH (09:19)
[2021-03-04] MEDS: Fluticasone Propionate Nasal Spray 16 GM Bottle NASBOTH SCH (09:19)
[2021-03-04] MEDS: Aspirin 81 MG Tab.EC PO SCH (09:19)
--- NOTE | 2021-03-04 14:47 | MR ---
Brain wo Cont CLINICAL HISTORY: Progressive weakness and confusion COMPARISON: CT 02/28/2021 MR 2016 TECHNIQUE: Multiple axial, sagittal, and coronal images were obtained on a 1.5 T magnet with multiweighted sequences, FLAIR, and diffusion imaging without contrast. FINDINGS: There is no focal mass lesion. There is no hemmorhage or extraaxial collection. There is hyperintensity on T2 and FLAIR images in the periventricular and subcortical white matter. There is also some increased signal in the corpus callosum. Overall this has increased since 2016.. The basal cisterns and sulci over the convexities are prominent. The ventricles are prominent. IMPRESSION: Moderate Age-related atrophy Moderate white matter signal change. This may represent the advanced to chronic ischemic microvascular changes. Demyelinating process is not absolutely excluded. No active plaque is identified. Clinical correlation necessary.
--- NOTE | 2021-03-04 14:47 | PCM.PN ---
- General Info Date of Service: 03/04/21 Subjective Update: No acute events overnight. Patient is pleasantly confused. She tells me that she feels fine. She does admit to feeling weak. She thinks her appetite has been good. She does not feel short of breath. She is not sure if she has been coughing or not. No complaints of abdominal pain. MRI showed moderate atrophy but no evidence for stroke. Echocardiogram showed a normal ejection fraction and minor valvular abnormalities. Functional Status: Reports: Pain Controlled, Tolerating Diet - Review of Systems General: Reports: Weakness - Patient Data Vitals - Most Recent: Last Vital Signs Temp 36.3 C 03/04/21 10:52 Pulse 56 L 03/04/21 10:52 Resp 18 03/04/21 10:52 BP 135/81 03/04/21 10:52 Pulse Ox 94 L 03/04/21 10:52 Weight - Most Recent: 65.317 kg I&O - Last 24 Hours: Intake & Output 03/03/21 03/04/21 03/04/21 22:59 06:59 14:59 Intake Total 120 480 Output Total 0 500 Balance 120 -20 Lab Results Last 24 Hours: Laboratory Results - last 24 hr 03/04/21 03/04/21 03/04/21 Range/Units 04:40 04:40 04:40 WBC 6.3 (4.5-11.0) K/uL RBC 4.05 (3.30-5.50) M/uL Hgb 12.1 (12.0-15.0) g/dL Hct 36.7 (36.0-48.0) % MCV 91 (80-98) fL MCH 30 (27-31) pg MCHC 33 (32-36) % Plt Count 294 (150-400) K/uL Neut % (Auto) 76.1 H (36-66) % Lymph % (Auto) 15.0 L (24-44) % [place] % (Auto) 8.4 H (2-6) % Eos % (Auto) 0.2 L (2-4) % Baso % (Auto) 0.3 (0-1) % Sodium 133 L (140-148) mmol/L Potassium 3.7 (3.6-5.2) mmol/L Chloride 97 L (100-108) mmol/L Carbon Dioxide 25 (21-32) mmol/L Anion Gap 14.7 H (5.0-14.0) mmol/L BUN 30 H (7-18) mg/dL Creatinine 1.3 H (0.6-1.0) mg/dL Est Cr Clr Drug Dosing 25.61 mL/min Estimated GFR (MDRD) 39 L (>60) Glucose 86 (74-106) mg/dL Calcium 8.3 L (8.5-10.1) mg/dL Troponin I 0.072 H* (0.000-0.056) ng/mL Urine Color (YELLOW) Urine Appearance (CLEAR) Urine pH (5.0-8.0) Ur Specific [place] (1.008-1.030) Urine Protein (NEGATIVE) mg/dL Urine Glucose (UA) (NEGATIVE) mg/dL Urine Ketones (NEGATIVE) mg/dL Urine Occult Blood (NEGATIVE) Urine Nitrite (NEGATIVE) Urine Bilirubin (NEGATIVE) Urine Urobilinogen (0.2-1.0) EU/dL Ur Leukocyte Esterase (NEGATIVE) Urine RBC (0-5) Urine WBC (0-5) Ur Epithelial Cells Amorphous Sediment Urine Bacteria Urine Mucus 03/04/21 Range/Units 09:27 WBC (4.5-11.0) K/uL RBC (3.30-5.50) M/uL Hgb (12.0-15.0) g/dL Hct (36.0-48.0) % MCV (80-98) fL MCH (27-31) pg MCHC (32-36) % Plt Count (150-400) K/uL Neut % (Auto) (36-66) % Lymph % (Auto) (24-44) % [place] % (Auto) (2-6) % Eos % (Auto) (2-4) % Baso % (Auto) (0-1) % Sodium (140-148) mmol/L Potassium (3.6-5.2) mmol/L Chloride (100-108) mmol/L Carbon Dioxide (21-32) mmol/L Anion Gap (5.0-14.0) mmol/L BUN (7-18) mg/dL Creatinine (0.6-1.0) mg/dL Est Cr Clr Drug Dosing mL/min Estimated GFR (MDRD) (>60) Glucose (74-106) mg/dL Calcium (8.5-10.1) mg/dL Troponin I (0.000-0.056) ng/mL Urine Color Yellow (YELLOW) Urine Appearance Cloudy A (CLEAR) Urine pH 5.5 (5.0-8.0) Ur Specific [place] 1.025 (1.008-1.030) Urine Protein 30 H (NEGATIVE) mg/dL Urine Glucose (UA) Negative (NEGATIVE) mg/dL Urine Ketones Negative (NEGATIVE) mg/dL Urine Occult Blood Negative (NEGATIVE) Urine Nitrite Negative (NEGATIVE) Urine Bilirubin Negative (NEGATIVE) Urine Urobilinogen 0.2 (0.2-1.0) EU/dL Ur Leukocyte Esterase Negative (NEGATIVE) Urine RBC 0-5 (0-5) Urine WBC 5-10 H (0-5) Ur Epithelial Cells Not seen Amorphous Sediment Not seen Urine Bacteria Many Urine Mucus Few Med Orders - Current: Current Medications Acetaminophen (Acetaminophen 325 Mg Tab) 650 mg PO Q4H PRN PRN Reason: Pain (Mild 1-3)/fever Last Admin: 03/03/21 17:27 Dose: 650 mg Documented by: Hydrocodone Bitart/Acetaminophen (Acetaminophen/Hydrocodone 325-5 Mg Tab) 1 tab PO BID PRN PRN Reason: PAIN Albuterol (Albuterol 0.083% 2.5 Mg/3 Ml Neb Soln) 2.5 mg NEB Q4H PRN PRN Reason: Shortness Of Breath/wheezing Allopurinol (Allopurinol 100 Mg Tab) 100 mg PO DAILY [facility] Last Admin: 03/04/21 09:17 Dose: 100 mg Documented by: Amoxicillin/Clavulanate Potassium (Amoxicillin/Clavulanate K 500-125 Mg Tab) 1 tab PO BID [facility] Aspirin (Aspirin 81 Mg Tab.Ec) 81 mg PO DAILY [facility] Last Admin: 03/04/21 09:19 Dose: 81 mg Documented by: Atorvastatin Calcium (Atorvastatin 10 Mg Tab) 10 mg PO DAILY [facility] Last Admin: 03/04/21 09:18 Dose: 10 mg Documented by: Enoxaparin Sodium (Enoxaparin 30 Mg/0.3 Ml Syringe) 30 mg SUBCUT BEDTIME [facility] Last Admin: 03/03/21 22:17 Dose: 30 mg Documented by: Fluticasone Propionate (Fluticasone Propionate Nasal [place] 16 Gm Bottle) 0 gm NASBOTH DAILY [facility] Last Admin: 03/04/21 09:19 Dose: 2 spray Documented by: Gabapentin (Gabapentin 100 Mg Cap) 100 mg PO BID [facility] Last Admin: 03/04/21 09:17 Dose: 100 mg Documented by: Lactobacillus Rhamnosus (Lactobacillus Rhamnosus Gg (Probiotic) Cap) 1 cap PO BID [facility] Losartan Potassium (Losartan 25 Mg Tab) 25 mg PO DAILY [facility] Last Admin: 03/04/21 09:18 Dose: 25 mg Documented by: Melatonin (Melatonin 3 Mg Tab) 9 mg PO BEDTIME [facility] Metoprolol Tartrate (Metoprolol Tartrate 25 Mg Tab) 25 mg PO BID [facility] Last Admin: 03/04/21 09:18 Dose: 25 mg Documented by: Montelukast Sodium (Montelukast 10 Mg Tab) 10 mg PO QPM [facility] Last Admin: 03/03/21 17:40 Dose: 10 mg Documented by: Ondansetron HCl (Ondansetron 4 Mg/2 Ml Sdv) 4 mg IV Q4H PRN PRN Reason: Nausea/Vomiting Pantoprazole Sodium (Pantoprazole 40 Mg Tab.Cr) 40 mg PO ACBREAKFAST [facility] Last Admin: 03/04/21 08:00 Dose: 40 mg Documented by: Polyethylene Glycol (Polyethylene Glycol 3350 Powder 17 Gm Packet) 17 gm PO DAILY PRN PRN Reason: Constipation Sodium Chloride (Sodium Chloride 0.9% 10 Ml Syringe) 10 ml FLUSH ASDIRECTED PRN PRN Reason: Keep Vein Open Venlafaxine HCl (Venlafaxine 75 Mg Cap.Er) 150 mg PO DAILY [facility] Last Admin: 03/04/21 09:19 Dose: 150 mg Documented by: Discontinued Medications Albuterol (Albuterol 8 Gm Inhaler) 0 gm INH Q4H PRN PRN Reason: Shortness of Breath Amoxicillin/Clavulanate Potassium (Amoxicillin/Clavulanate K 875-125 Mg Tab) 1 tab PO BID [facility] Last Admin: 03/04/21 09:17 Dose: 1 tab Documented by: Betamethasone Dipropionate (Betamethasone Dipropionate 0.05% Oint 15 Gm Tube) 0 gm TOP BID [facility] Last Admin: 03/03/21 12:51 Dose: Not Given Documented by: Cholecalciferol (Cholecalciferol (Vitamin D3) 25 Mcg Tab) 25 mcg PO DAILY [facility] Last Admin: 03/03/21 10:02 Dose: 25 mcg Documented by: Furosemide (Furosemide 40 Mg Tab) 20 mg PO DAILY PRN PRN Reason: Edema Lactated Ringer's (Ringers, Lactated) 1,000 mls @ 0 mls/hr IV ASDIRECTED [facility] Last Admin: 03/02/21 16:02 Dose: 25 mls/hr Documented by: Ceftriaxone Sodium 1 gm/ (Sodium Chloride) 50 mls @ 100 mls/hr IV Q24H [facility] Loratadine (Loratadine 10 Mg Tab.Dis) 10 mg PO DAILY PRN PRN Reason: Allergies Mupirocin (Mupirocin Oint 22 Gm Tube) 0 gm TOP TID PRN PRN Reason: Rash Non-Formulary Medication (Fluticasone Propionate [Flovent]) 2 sprays IH DAILY [facility] Last Admin: 03/03/21 12:57 Dose: Not Given Documented by: Non-Formulary Medication (Hydrocodone/Acetaminophen [Hydrocodon-Acetaminophen 5- 500]) 1 tab PO BID PRN PRN Reason: Pain Non-Formulary Medication (Loratadine [Claritin]) 10 mg PO DAILY PRN PRN Reason: Allergies Non-Formulary Medication (Omeprazole [Omeprazole]) 20 mg PO DAILY [facility] Last Admin: 03/03/21 18:03 Dose: Not Given Documented by: Non-Formulary Medication (Simvastatin [Zocor]) 20 mg PO BEDTIME [facility] Sodium Chloride (Sodium Chloride 0.9% 10 Ml Syringe) 10 ml FLUSH ASDIRECTED PRN PRN Reason: Keep Vein Open Last Admin: 03/02/21 15:59 Dose: 10 ml Documented by: - Exam Quality Assessment: No: Supplemental Oxygen General: Alert, Cooperative, No Acute Distress. No: Oriented Lungs: Normal Respiratory Effort GI/Abdominal Exam: Soft, No Distention Extremities: No Pedal Edema Psy/Mental Status: Alert, Normal Affect - Patient Data Lab Results Last 24 hrs: Laboratory Results - last 24 hr 03/04/21 03/04/21 03/04/21 Range/Units 04:40 04:40 04:40 WBC 6.3 (4.5-11.0) K/uL RBC 4.05 (3.30-5.50) M/uL Hgb 12.1 (12.0-15.0) g/dL Hct 36.7 (36.0-48.0) % MCV 91 (80-98) fL MCH 30 (27-31) pg MCHC 33 (32-36) % Plt Count 294 (150-400) K/uL Neut % (Auto) 76.1 H (36-66) % Lymph % (Auto) 15.0 L (24-44) % [place] % (Auto) 8.4 H (2-6) % Eos % (Auto) 0.2 L (2-4) % Baso % (Auto) 0.3 (0-1) % Sodium 133 L (140-148) mmol/L Potassium 3.7 (3.6-5.2) mmol/L Chloride 97 L (100-108) mmol/L Carbon Dioxide 25 (21-32) mmol/L Anion Gap 14.7 H (5.0-14.0) mmol/L BUN 30 H (7-18) mg/dL Creatinine 1.3 H (0.6-1.0) mg/dL Est Cr Clr Drug Dosing 25.61 mL/min Estimated GFR (MDRD) 39 L (>60) Glucose 86 (74-106) mg/dL Calcium 8.3 L (8.5-10.1) mg/dL Troponin I 0.072 H* (0.000-0.056) ng/mL Urine Color (YELLOW) Urine Appearance (CLEAR) Urine pH (5.0-8.0) Ur Specific [place] (1.008-1.030) Urine Protein (NEGATIVE) mg/dL Urine Glucose (UA) (NEGATIVE) mg/dL Urine Ketones (NEGATIVE) mg/dL Urine Occult Blood (NEGATIVE) Urine Nitrite (NEGATIVE) Urine Bilirubin (NEGATIVE) Urine Urobilinogen (0.2-1.0) EU/dL Ur Leukocyte Esterase (NEGATIVE) Urine RBC (0-5) Urine WBC (0-5) Ur Epithelial Cells Amorphous Sediment Urine Bacteria Urine Mucus 03/04/21 Range/Units 09:27 WBC (4.5-11.0) K/uL RBC (3.30-5.50) M/uL Hgb (12.0-15.0) g/dL Hct (36.0-48.0) % MCV (80-98) fL MCH (27-31) pg MCHC (32-36) % Plt Count (150-400) K/uL Neut % (Auto) (36-66) % Lymph % (Auto) (24-44) % [place] % (Auto) (2-6) % Eos % (Auto) (2-4) % Baso % (Auto) (0-1) % Sodium (140-148) mmol/L Potassium (3.6-5.2) mmol/L Chloride (100-108) mmol/L Carbon Dioxide (21-32) mmol/L Anion Gap (5.0-14.0) mmol/L BUN (7-18) mg/dL Creatinine (0.6-1.0) mg/dL Est Cr Clr Drug Dosing mL/min Estimated GFR (MDRD) (>60) Glucose (74-106) mg/dL Calcium (8.5-10.1) mg/dL Troponin I (0.000-0.056) ng/mL Urine Color Yellow (YELLOW) Urine Appearance Cloudy A (CLEAR) Urine pH 5.5 (5.0-8.0) Ur Specific [place] 1.025 (1.008-1.030) Urine Protein 30 H (NEGATIVE) mg/dL Urine Glucose (UA) Negative (NEGATIVE) mg/dL Urine Ketones Negative (NEGATIVE) mg/dL Urine Occult Blood Negative (NEGATIVE) Urine Nitrite Negative (NEGATIVE) Urine Bilirubin Negative (NEGATIVE) Urine Urobilinogen 0.2 (0.2-1.0) EU/dL Ur Leukocyte Esterase Negative (NEGATIVE) Urine RBC 0-5 (0-5) Urine WBC 5-10 H (0-5) Ur Epithelial Cells Not seen Amorphous Sediment Not seen Urine Bacteria Many Urine Mucus Few Result Diagrams: 03/04/21 04:40 03/04/21 04:40 Sepsis Event Note - Evaluation Sepsis Screening Result: No Definite Risk - Focused Exam Vital Signs: Vital Signs Temp Pulse Pulse Resp BP BP Pulse Ox 03/04/21 10:52 36.3 C 56 L 18 135/81 94 L 03/04/21 09:18 64 115/79 03/04/21 07:00 36.0 C L 63 17 150/94 H 95 03/04/21 03:27 35.8 C L 55 L 18 147/79 H 94 L 03/04/21 02:59 Pulse Ox 03/04/21 10:52 03/04/21 09:18 03/04/21 07:00 03/04/21 03:27 03/04/21 02:59 97 - Problem List Review Problem List Initiated/Reviewed/Updated: Yes - My Orders Last 24 Hours: My Active Orders 03/04/21 Lunch Pureed Diet [DIET] 03/04/21 14:16 CULTURE URINE [RM] Routine 03/04/21 21:00 Amoxicillin/Clavulanate K [Augmentin 500 MG\125 MG] 1 tab PO BID Lactobacillus Rhamnosus GG [Culturelle] 1 cap PO BID Melatonin 9 mg PO BEDTIME - Plan Plan:: ASSESSMENT AND PLAN - [id number] has been symptomatic for the past 3 weeks, just tested positive 3 days prior to admission. This is likely been a contributing factor in her decline over the past few weeks. She does not currently require any treatment for Covid. -No further intervention required at this time GENERALIZED WEAKNESS-this is likely multifactorial related to her progressive dementia and recent COVID-19 infection. MRI of the brain showed moderate age- related atrophy. Urinalysis suggested possible urinary tract infection. -Physical therapy -Treat sinusitis (this should cover possible UTI as well) -Follow-up urine culture SINUSITIS-evidence of acute infection noted on recent CT scan -Augmentin 875 p.o. twice daily x1 week, then reassess ELEVATED TROPONIN-no evidence of acute [place] on EKG. Mild elevation may be related to recent Covid infection. CHRONIC KIDNEY DISEASE STAGE IIIb-kidney function stable. -Closely monitor urine output and renal function PROGRESSIVE DEMENTIA-no behavior issues. -Melatonin at bedtime MAINTENANCE ISSUES -DVT prophylaxis; enoxaparin 30 mg subcu daily -GI prophylaxis; not indicated -Granados catheter; not indicated -Nutrition; 2 g sodium diet ADMISSION STATUS-this patient will be admitted to observation status, expect no more than a one night hospital stay for evaluation and management of problems as outlined above. DISPOSITION-anticipate discharge to home after the hospital stay. Manueltio Shen MD
[2021-03-04] MEDS ORDERED: cefTRIAXone 1 GM in Sodium Chloride 0.9% 50 ML IV SCH (15:00)
[2021-03-04] MEDS: Montelukast 10 MG Tab PO SCH (17:21)
[2021-03-04] MEDS: Amoxicillin/Clavulanate K 500-125 MG Tab PO SCH (20:00)
[2021-03-04] MEDS: Lactobacillus Rhamnosus GG (Probiotic) Cap PO SCH (20:00)
[2021-03-04] MEDS: Enoxaparin 30 MG/0.3 ML Syringe SUBCUT SCH (20:01)
[2021-03-04] MEDS: Melatonin 3 MG Tab PO SCH (20:01)
[2021-03-04] MEDS: Gabapentin 100 MG **PTOM PO SCH (20:01)
[2021-03-05] MEDS: Metoprolol Tartrate 25 MG Tab PO SCH ×2 (09:40→21:30)
[2021-03-05] MEDS: Amoxicillin/Clavulanate K 500-125 MG Tab PO SCH ×2 (09:40→21:29)
[2021-03-05] MEDS: Aspirin 81 MG Tab.EC PO SCH (09:40)
[2021-03-05] MEDS: atorvaSTATin 10 MG Tab PO SCH (09:40)
[2021-03-05] MEDS: ALLOPURINOL 100 MG PO SCH (09:42)
[2021-03-05] MEDS: Losartan 25 MG **PTOM PO SCH (09:42)
[2021-03-05] MEDS: OMEPRAZOLE 20MG **PTOM PO SCH (09:42)
[2021-03-05] MEDS: VENLAFAXINE 150 MG PO SCH (09:43)
[2021-03-05] MEDS: Fluticasone Propionate Nasal Spray 16 GM Bottle NASBOTH SCH (09:43)
[2021-03-05] MEDS: Gabapentin 100 MG **PTOM PO SCH ×2 (09:44→21:34)
[2021-03-05] MEDS: Lactobacillus Rhamnosus GG (Probiotic) Cap PO SCH ×2 (10:28→21:29)
--- NOTE | 2021-03-05 14:54 | PCM.PN ---
- General Info Date of Service: 03/05/21 Subjective Update: No acute events overnight. Patient pleasantly confused. She reports that she feels okay this morning and feels pretty close to normal. No nausea or abdominal pain. she does not feel short of breath. She tells me she can walk to the bathroom and back. She says she has been eating well. Functional Status: Reports: Tolerating Diet - Review of Systems General: Reports: Weakness. Denies: Fever Neurological: Reports: Confusion - Patient Data Vitals - Most Recent: Last Vital Signs Temp 36.3 C 03/05/21 10:53 Pulse 65 03/05/21 10:53 Resp 18 03/05/21 10:53 BP 117/82 03/05/21 10:53 Pulse Ox 94 L 03/05/21 10:53 Weight - Most Recent: 65.317 kg I&O - Last 24 Hours: Intake & Output 03/04/21 03/05/21 03/05/21 22:59 06:59 14:59 Intake Total 520 380 Balance 520 380 Med Orders - Current: Current Medications Acetaminophen (Acetaminophen 325 Mg Tab) 650 mg PO Q4H PRN PRN Reason: Pain (Mild 1-3)/fever Last Admin: 03/03/21 17:27 Dose: 650 mg Documented by: Hydrocodone Bitart/Acetaminophen (Acetaminophen/Hydrocodone 325-5 Mg Tab) 1 tab PO BID PRN PRN Reason: PAIN Albuterol (Albuterol 0.083% 2.5 Mg/3 Ml Neb Soln) 2.5 mg NEB Q4H PRN PRN Reason: Shortness Of Breath/wheezing Allopurinol (Allopurinol 100 Mg Ptom) 100 mg PO DAILY [facility] Last Admin: 03/05/21 09:42 Dose: 100 mg Documented by: Amoxicillin/Clavulanate Potassium (Amoxicillin/Clavulanate K 500-125 Mg Tab) 1 tab PO BID [facility] Last Admin: 03/05/21 09:40 Dose: 1 tab Documented by: Aspirin (Aspirin 81 Mg Tab.Ec) 81 mg PO DAILY [facility] Last Admin: 03/05/21 09:40 Dose: 81 mg Documented by: Atorvastatin Calcium (Atorvastatin 10 Mg Tab) 10 mg PO DAILY [facility] Last Admin: 03/05/21 09:40 Dose: 10 mg Documented by: Enoxaparin Sodium (Enoxaparin 30 Mg/0.3 Ml Syringe) 30 mg SUBCUT BEDTIME [facility] Last Admin: 03/04/21 20:01 Dose: 30 mg Documented by: Fluticasone Propionate (Fluticasone Propionate Nasal [place] 16 Gm Bottle) 0 gm NASBOTH DAILY [facility] Last Admin: 03/05/21 09:43 Dose: 2 spray Documented by: Gabapentin (Gabapentin 100 Mg Ptom) 100 mg PO BID [facility] Last Admin: 03/05/21 09:44 Dose: 100 mg Documented by: Lactobacillus Rhamnosus (Lactobacillus Rhamnosus Gg (Probiotic) Cap) 1 cap PO BID [facility] Last Admin: 03/05/21 10:28 Dose: 1 cap Documented by: Losartan Potassium (Losartan 25 Mg Ptom) 25 mg PO DAILY [facility] Last Admin: 03/05/21 09:42 Dose: 25 mg Documented by: Melatonin (Melatonin 3 Mg Tab) 9 mg PO BEDTIME [facility] Last Admin: 03/04/21 20:01 Dose: 9 mg Documented by: Metoprolol Tartrate (Metoprolol Tartrate 25 Mg Tab) 25 mg PO BID [facility] Last Admin: 03/05/21 09:40 Dose: 25 mg Documented by: Montelukast Sodium (Montelukast 10 Mg Tab) 10 mg PO QPM [facility] Last Admin: 03/04/21 17:21 Dose: 10 mg Documented by: Ondansetron HCl (Ondansetron 4 Mg/2 Ml Sdv) 4 mg IV Q4H PRN PRN Reason: Nausea/Vomiting Omeprazole 20mg (Ptom) 0 each PO ACBREAKFAST [facility] Last Admin: 03/05/21 09:42 Dose: 1 each Documented by: Venlafaxine 150mg (Ptom) 0 each PO DAILY [facility] Last Admin: 03/05/21 09:43 Dose: 1 each Documented by: Polyethylene Glycol (Polyethylene Glycol 3350 Powder 17 Gm Packet) 17 gm PO DAILY PRN PRN Reason: Constipation Sodium Chloride (Sodium Chloride 0.9% 10 Ml Syringe) 10 ml FLUSH ASDIRECTED PRN PRN Reason: Keep Vein Open Discontinued Medications Albuterol (Albuterol 8 Gm Inhaler) 0 gm INH Q4H PRN PRN Reason: Shortness of Breath Allopurinol (Allopurinol 100 Mg Tab) 100 mg PO DAILY [facility] Last Admin: 03/04/21 09:17 Dose: 100 mg Documented by: Amoxicillin/Clavulanate Potassium (Amoxicillin/Clavulanate K 875-125 Mg Tab) 1 tab PO BID [facility] Last Admin: 03/04/21 09:17 Dose: 1 tab Documented by: Betamethasone Dipropionate (Betamethasone Dipropionate 0.05% Oint 15 Gm Tube) 0 gm TOP BID [facility] Last Admin: 03/03/21 12:51 Dose: Not Given Documented by: Cholecalciferol (Cholecalciferol (Vitamin D3) 25 Mcg Tab) 25 mcg PO DAILY [facility] Last Admin: 03/03/21 10:02 Dose: 25 mcg Documented by: Furosemide (Furosemide 40 Mg Tab) 20 mg PO DAILY PRN PRN Reason: Edema Gabapentin (Gabapentin 100 Mg Cap) 100 mg PO BID [facility] Last Admin: 03/04/21 09:17 Dose: 100 mg Documented by: Lactated Ringer's (Ringers, Lactated) 1,000 mls @ 0 mls/hr IV ASDIRECTED [facility] Last Admin: 03/02/21 16:02 Dose: 25 mls/hr Documented by: Ceftriaxone Sodium 1 gm/ (Sodium Chloride) 50 mls @ 100 mls/hr IV Q24H [facility] Loratadine (Loratadine 10 Mg Tab.Dis) 10 mg PO DAILY PRN PRN Reason: Allergies Losartan Potassium (Losartan 25 Mg Tab) 25 mg PO DAILY [facility] Last Admin: 03/04/21 09:18 Dose: 25 mg Documented by: Mupirocin (Mupirocin Oint 22 Gm Tube) 0 gm TOP TID PRN PRN Reason: Rash Non-Formulary Medication (Fluticasone Propionate [Flovent]) 2 sprays IH DAILY [facility] Last Admin: 03/03/21 12:57 Dose: Not Given Documented by: Non-Formulary Medication (Hydrocodone/Acetaminophen [Hydrocodon-Acetaminophen 5- 500]) 1 tab PO BID PRN PRN Reason: Pain Non-Formulary Medication (Loratadine [Claritin]) 10 mg PO DAILY PRN PRN Reason: Allergies Non-Formulary Medication (Omeprazole [Omeprazole]) 20 mg PO DAILY [facility] Last Admin: 03/03/21 18:03 Dose: Not Given Documented by: Non-Formulary Medication (Simvastatin [Zocor]) 20 mg PO BEDTIME [facility] Pantoprazole Sodium (Pantoprazole 40 Mg Tab.Cr) 40 mg PO ACBREAKFAST [facility] Last Admin: 03/04/21 08:00 Dose: 40 mg Documented by: Sodium Chloride (Sodium Chloride 0.9% 10 Ml Syringe) 10 ml FLUSH ASDIRECTED PRN PRN Reason: Keep Vein Open Last Admin: 03/02/21 15:59 Dose: 10 ml Documented by: Venlafaxine HCl (Venlafaxine 75 Mg Cap.Er) 150 mg PO DAILY [facility] Last Admin: 03/04/21 09:19 Dose: 150 mg Documented by: - Exam Quality Assessment: No: Supplemental Oxygen General: Alert, Cooperative, No Acute Distress. No: Oriented Lungs: Normal Respiratory Effort. No: Wheezing GI/Abdominal Exam: Soft, No Distention Extremities: No Pedal Edema Skin: Warm, Dry Psy/Mental Status: Alert, Normal Affect. No: Agitated - Patient Data Result Diagrams: 03/04/21 04:40 03/04/21 04:40 Sepsis Event Note - Evaluation Sepsis Screening Result: No Definite Risk - Focused Exam Vital Signs: Vital Signs Temp Pulse Pulse Resp BP BP Pulse Ox 03/05/21 10:53 36.3 C 65 18 117/82 94 L 03/05/21 09:42 123/84 03/05/21 09:40 69 123/84 03/05/21 07:52 35.7 C L 60 18 139/84 98 03/05/21 07:00 93 L 03/05/21 03:57 36.0 C L 59 L 16 145/85 H 96 - Problem List Review Problem List Initiated/Reviewed/Updated: Yes - My Orders Last 24 Hours: My Active Orders 03/04/21 14:16 CULTURE URINE [RM] Routine 03/04/21 21:00 Amoxicillin/Clavulanate K [Augmentin 500 MG\125 MG] 1 tab PO BID Lactobacillus Rhamnosus GG [Culturelle] 1 cap PO BID Melatonin 9 mg PO BEDTIME - Plan Plan:: ASSESSMENT AND PLAN - [id number] has been symptomatic for the past 3 weeks, just tested positive 3 days prior to admission. This is likely been a contributing factor in her decline over the past few weeks. She does not currently require any treatment for Covid. -No further intervention required at this time GENERALIZED WEAKNESS-this is likely multifactorial related to her progressive dementia and recent COVID-19 infection. MRI of the brain showed moderate age- related atrophy. Urinalysis suggested possible urinary tract infection. -Physical therapy -Treat sinusitis (this should cover possible UTI as well) -Follow-up urine culture SINUSITIS-evidence of acute infection noted on recent CT scan -Augmentin twice daily x1 week ELEVATED TROPONIN-no evidence of acute [place] on EKG. Mild elevation may be related to recent Covid infection. CHRONIC KIDNEY DISEASE STAGE IIIb-kidney function stable. -Closely monitor urine output and renal function PROGRESSIVE DEMENTIA-no behavior issues. -Melatonin at bedtime MAINTENANCE ISSUES -DVT prophylaxis; enoxaparin 30 mg subcu daily -GI prophylaxis; not indicated -Granados catheter; not indicated -Nutrition; 2 g sodium diet ADMISSION STATUS-this patient will be admitted to observation status, expect no more than a one night hospital stay for evaluation and management of problems as outlined above. DISPOSITION-anticipate discharge to home with family versus possibly subacute rehab after the hospital stay. Manuelito Shen MD
[2021-03-05] MEDS: Montelukast 10 MG Tab PO SCH (16:57)
[2021-03-05] MEDS: Acetaminophen 325 MG Tab PO PRN (16:58)
[2021-03-05] MEDS: Melatonin 3 MG Tab PO SCH (21:29)
[2021-03-05] MEDS: Enoxaparin 30 MG/0.3 ML Syringe SUBCUT SCH (21:30)
[2021-03-06] MEDS: Losartan 25 MG **PTOM PO SCH (09:08)
[2021-03-06] MEDS: OMEPRAZOLE 20MG **PTOM PO SCH (09:09)
[2021-03-06] MEDS: VENLAFAXINE 150 MG PO SCH (09:09)
[2021-03-06] MEDS: Amoxicillin/Clavulanate K 500-125 MG Tab PO SCH ×2 (09:10→21:44)
[2021-03-06] MEDS: Metoprolol Tartrate 25 MG Tab PO SCH ×2 (09:10→21:45)
[2021-03-06] MEDS: ALLOPURINOL 100 MG PO SCH (09:10)
[2021-03-06] MEDS: Lactobacillus Rhamnosus GG (Probiotic) Cap PO SCH ×2 (09:10→21:44)
[2021-03-06] MEDS: Aspirin 81 MG Tab.EC PO SCH (09:10)
[2021-03-06] MEDS: Gabapentin 100 MG **PTOM PO SCH ×2 (09:11→21:44)
[2021-03-06] MEDS: atorvaSTATin 10 MG Tab PO SCH (09:11)
[2021-03-06] MEDS: Fluticasone Propionate Nasal Spray 16 GM Bottle NASBOTH SCH (09:11)
--- NOTE | 2021-03-06 12:08 | PCM.PN ---
- General Info Date of Service: 03/06/21 Subjective Update: No acute events overnight. Patient reports that she feels well. No shortness of breath, abdominal pain or nausea. No fevers. Weak but otherwise doing okay. Functional Status: Reports: Pain Controlled, Tolerating Diet - Review of Systems General: Reports: Weakness Neurological: Reports: Confusion - Patient Data Vitals - Most Recent: Last Vital Signs Temp 36.3 C 03/06/21 10:47 Pulse 55 L 03/06/21 10:47 Resp 16 03/06/21 10:47 BP 132/65 03/06/21 10:47 Pulse Ox 97 03/06/21 10:47 Weight - Most Recent: 63.5 kg I&O - Last 24 Hours: Intake & Output 03/05/21 03/06/21 03/06/21 22:59 06:59 14:59 Intake Total 360 120 Output Total 600 Balance 360 -480 Paulino Results Last 24 Hours: Microbiology 03/04/21 14:16 Urine Culture - Preliminary Urine, Clean Catch MIXED PAUL DAY 1 Med Orders - Current: Current Medications Acetaminophen (Acetaminophen 325 Mg Tab) 650 mg PO Q4H PRN PRN Reason: Pain (Mild 1-3)/fever Last Admin: 03/05/21 16:58 Dose: 650 mg Documented by: Hydrocodone Bitart/Acetaminophen (Acetaminophen/Hydrocodone 325-5 Mg Tab) 1 tab PO BID PRN PRN Reason: PAIN Albuterol (Albuterol 0.083% 2.5 Mg/3 Ml Neb Soln) 2.5 mg NEB Q4H PRN PRN Reason: Shortness Of Breath/wheezing Allopurinol (Allopurinol 100 Mg Ptom) 100 mg PO DAILY COUNT [facility]CLUDES [facility] Last Admin: 03/06/21 09:10 Dose: 100 mg Documented by: Amoxicillin/Clavulanate Potassium (Amoxicillin/Clavulanate K 500-125 Mg Tab) 1 tab PO BID [facility]CLUD[facility] Last Admin: 03/06/21 09:10 Dose: 1 tab Documented by: Aspirin (Aspirin 81 Mg Tab.Ec) 81 mg PO DAILY COUNT [facility]CLUD[facility] Last Admin: 03/06/21 09:10 Dose: 81 mg Documented by: Atorvastatin Calcium (Atorvastatin 10 Mg Tab) 10 mg PO DAILY [facility] Last Admin: 03/06/21 09:11 Dose: 10 mg Documented by: Enoxaparin Sodium (Enoxaparin 30 Mg/0.3 Ml Syringe) 30 mg SUBCUT BEDTIME COUNT [facility]CLUDES [facility] Last Admin: 03/05/21 21:30 Dose: 30 mg Documented by: Fluticasone Propionate (Fluticasone Propionate Nasal [place] 16 Gm Bottle) 0 gm NASBOTH DAILY COUNT [facility]CLUDES [facility] Last Admin: 03/06/21 09:11 Dose: 2 spray Documented by: Gabapentin (Gabapentin 100 Mg Ptom) 100 mg PO BID COUNT [facility]CLUD[facility] Last Admin: 03/06/21 09:11 Dose: 100 mg Documented by: Lactobacillus Rhamnosus (Lactobacillus Rhamnosus Gg (Probiotic) Cap) 1 cap PO BID COUNT [facility]CLUDES [facility] Last Admin: 03/06/21 09:10 Dose: 1 cap Documented by: Losartan Potassium (Losartan 25 Mg Ptom) 25 mg PO DAILY COUNT [facility] Last Admin: 03/06/21 09:08 Dose: 25 mg Documented by: Melatonin (Melatonin 3 Mg Tab) 9 mg PO BEDTIME COUNT [facility]CLUDES [facility] Last Admin: 03/05/21 21:29 Dose: 9 mg Documented by: Metoprolol Tartrate (Metoprolol Tartrate 25 Mg Tab) 25 mg PO BID COUNT [facility]CLUD[facility] Last Admin: 03/06/21 09:10 Dose: 25 mg Documented by: Montelukast Sodium (Montelukast 10 Mg Tab) 10 mg PO QPM COUNT [facility]CLUD[facility] Last Admin: 03/05/21 16:57 Dose: 10 mg Documented by: Ondansetron HCl (Ondansetron 4 Mg/2 Ml Sdv) 4 mg IV Q4H PRN PRN Reason: Nausea/Vomiting Omeprazole 20mg (Ptom) 0 each PO ACBREAKFAST COUNT INCLUDES [facility] Last Admin: 03/06/21 09:09 Dose: 1 each Documented by: Venlafaxine 150mg (Ptom) 0 each PO DAILY COUNT [facility]CLUDES [facility] Last Admin: 03/06/21 09:09 Dose: 1 each Documented by: Polyethylene Glycol (Polyethylene Glycol 3350 Powder 17 Gm Packet) 17 gm PO DAILY PRN PRN Reason: Constipation Sodium Chloride (Sodium Chloride 0.9% 10 Ml Syringe) 10 ml FLUSH ASDIRECTED PRN PRN Reason: Keep Vein Open Discontinued Medications Albuterol (Albuterol 8 Gm Inhaler) 0 gm INH Q4H PRN PRN Reason: Shortness of Breath Allopurinol (Allopurinol 100 Mg Tab) 100 mg PO DAILY COUNT [facility]CLUD[facility] Last Admin: 03/04/21 09:17 Dose: 100 mg Documented by: Amoxicillin/Clavulanate Potassium (Amoxicillin/Clavulanate K 875-125 Mg Tab) 1 tab PO BID COUNT [facility]CLUDES [facility] Last Admin: 03/04/21 09:17 Dose: 1 tab Documented by: Betamethasone Dipropionate (Betamethasone Dipropionate 0.05% Oint 15 Gm Tube) 0 gm TOP BID COUNT INCLUDES [facility] Last Admin: 03/03/21 12:51 Dose: Not Given Documented by: Cholecalciferol (Cholecalciferol (Vitamin D3) 25 Mcg Tab) 25 mcg PO DAILY COUNT [facility]CLUDES [facility] Last Admin: 03/03/21 10:02 Dose: 25 mcg Documented by: Furosemide (Furosemide 40 Mg Tab) 20 mg PO DAILY PRN PRN Reason: Edema Gabapentin (Gabapentin 100 Mg Cap) 100 mg PO BID COUNT [facility]CLUDES [facility] Last Admin: 03/04/21 09:17 Dose: 100 mg Documented by: Lactated Ringer's (Ringers, Lactated) 1,000 mls @ 0 mls/hr IV ASDIRECTED COUNT INCLUDES [facility] Last Admin: 03/02/21 16:02 Dose: 25 mls/hr Documented by: Ceftriaxone Sodium 1 gm/ (Sodium Chloride) 50 mls @ 100 mls/hr IV Q24H COUNT INCLUDES [facility] Loratadine (Loratadine 10 Mg Tab.Dis) 10 mg PO DAILY PRN PRN Reason: Allergies Losartan Potassium (Losartan 25 Mg Tab) 25 mg PO DAILY COUNT [facility]CLUDES [facility] Last Admin: 03/04/21 09:18 Dose: 25 mg Documented by: Mupirocin (Mupirocin Oint 22 Gm Tube) 0 gm TOP TID PRN PRN Reason: Rash Non-Formulary Medication (Fluticasone Propionate [Flovent]) 2 sprays IH DAILY COUNT INCLUDES [facility] Last Admin: 03/03/21 12:57 Dose: Not Given Documented by: Non-Formulary Medication (Hydrocodone/Acetaminophen [Hydrocodon-Acetaminophen 5- 500]) 1 tab PO BID PRN PRN Reason: Pain Non-Formulary Medication (Loratadine [Claritin]) 10 mg PO DAILY PRN PRN Reason: Allergies Non-Formulary Medication (Omeprazole [Omeprazole]) 20 mg PO DAILY COUNT [facility]CLUDES [facility] Last Admin: 03/03/21 18:03 Dose: Not Given Documented by: Non-Formulary Medication (Simvastatin [Zocor]) 20 mg PO BEDTIME COUNT INCLUDES [facility] Pantoprazole Sodium (Pantoprazole 40 Mg Tab.Cr) 40 mg PO ACBREAKFAST COUNT INCLUDES [facility] Last Admin: 03/04/21 08:00 Dose: 40 mg Documented by: Sodium Chloride (Sodium Chloride 0.9% 10 Ml Syringe) 10 ml FLUSH ASDIRECTED PRN PRN Reason: Keep Vein Open Last Admin: 03/02/21 15:59 Dose: 10 ml Documented by: Venlafaxine HCl (Venlafaxine 75 Mg Cap.Er) 150 mg PO DAILY COUNT [facility]CLUDES [facility] Last Admin: 03/04/21 09:19 Dose: 150 mg Documented by: - Exam Quality Assessment: No: Supplemental Oxygen General: Alert, Cooperative, No Acute Distress. No: Oriented Lungs: Normal Respiratory Effort GI/Abdominal Exam: Soft, No Distention Extremities: No Pedal Edema Psy/Mental Status: Alert, Normal Affect - Patient Data Result Diagrams: 03/04/21 04:40 03/04/21 04:40 Paulino Results Last 24 hrs: Microbiology 03/04/21 14:16 Urine Culture - Preliminary Urine, Clean Catch MIXED PAUL DAY 1 Sepsis Event Note - Evaluation Sepsis Screening Result: No Definite Risk - Focused Exam Vital Signs: Vital Signs Temp Pulse Pulse Resp BP BP Pulse Ox 03/06/21 10:47 36.3 C 55 L 16 132/65 97 03/06/21 09:10 53 L 153/89 H 03/06/21 09:08 153/89 H 03/06/21 07:00 36.6 C 53 L 16 153/89 H 94 L 03/06/21 02:55 92 L 03/06/21 02:26 35.3 C L 50 L 16 144/75 H 94 L - Problem List Review Problem List Initiated/Reviewed/Updated: Yes - Plan Plan:: ASSESSMENT AND PLAN - [id number] had been symptomatic for the past 3 weeks, just tested positive 3 days prior to admission. This is likely been a contributing factor in her decline over the past few weeks. She does not currently require any treatment for Covid. I suspect her Covid illness was present at the beginning of February and this is a residual positive. Planning to continue isolation for 10 days from positive test. -No further intervention required at this time GENERALIZED WEAKNESS-this is likely multifactorial related to her progressive dementia and recent COVID-19 infection. MRI of the brain showed moderate age- related atrophy. Urinalysis suggested possible urinary tract infection but culture negative so far. -Physical therapy -Treat sinusitis (this should cover possible UTI as well) -Follow-up urine culture SINUSITIS-evidence of acute infection noted on recent CT scan -Augmentin twice daily x1 week ELEVATED TROPONIN-no evidence of acute CO on EKG. Mild elevation may be related to recent Covid infection. CHRONIC KIDNEY DISEASE STAGE IIIb-kidney function stable. -Closely monitor urine output and renal function PROGRESSIVE DEMENTIA-no behavior issues. -Melatonin at bedtime MAINTENANCE ISSUES -DVT prophylaxis; enoxaparin 30 mg subcu daily -GI prophylaxis; not indicated -Granados catheter; not indicated -Nutrition; 2 g sodium diet ADMISSION STATUS-this patient will be admitted to observation status, expect no more than a one night hospital stay for evaluation and management of problems as outlined above. DISPOSITION-anticipate discharge to subacute rehab after the hospital stay. aMnuelito Shen MD
[2021-03-06] MEDS: Montelukast 10 MG Tab PO SCH (18:42)
[2021-03-06] MEDS: Melatonin 3 MG Tab PO SCH (21:44)
[2021-03-06] MEDS: Enoxaparin 30 MG/0.3 ML Syringe SUBCUT SCH (21:45)
[2021-03-07] MEDS: ALLOPURINOL 100 MG PO SCH (08:59)
[2021-03-07] MEDS: OMEPRAZOLE 20MG **PTOM PO SCH (08:59)
[2021-03-07] MEDS: Losartan 25 MG **PTOM PO SCH (09:00)
[2021-03-07] MEDS: VENLAFAXINE 150 MG PO SCH (09:01)
[2021-03-07] MEDS: Gabapentin 100 MG **PTOM PO SCH ×2 (09:01→20:40)
[2021-03-07] MEDS: Amoxicillin/Clavulanate K 500-125 MG Tab PO SCH ×2 (09:01→20:40)
[2021-03-07] MEDS: Lactobacillus Rhamnosus GG (Probiotic) Cap PO SCH ×2 (09:01→20:40)
[2021-03-07] MEDS: atorvaSTATin 10 MG Tab PO SCH (09:02)
[2021-03-07] MEDS: Aspirin 81 MG Tab.EC PO SCH (09:02)
[2021-03-07] MEDS: Fluticasone Propionate Nasal Spray 16 GM Bottle NASBOTH SCH (09:02)
[2021-03-07] MEDS: Metoprolol Tartrate 25 MG Tab PO SCH ×2 (09:02→20:40)
--- NOTE | 2021-03-07 15:53 | PCM.PN ---
- General Info Date of Service: 03/07/21 Subjective Update: No acute events overnight. Patient feels well. No complaints of shortness of breath or nausea. Appetite okay. Still weak and requiring assistance but otherwise doing okay. Functional Status: Reports: Pain Controlled, Tolerating Diet - Review of Systems General: Reports: Weakness Neurological: Reports: Confusion - Patient Data Vitals - Most Recent: Last Vital Signs Temp 36.3 C 03/07/21 11:00 Pulse 52 L 03/07/21 11:00 Resp 16 03/07/21 11:00 BP 137/72 03/07/21 11:00 Pulse Ox 97 03/07/21 11:00 Weight - Most Recent: 62.1 kg I&O - Last 24 Hours: Intake & Output 03/07/21 03/07/21 03/07/21 06:59 14:59 22:59 Intake Total 360 Balance 360 Paulino Results Last 24 Hours: Microbiology 03/04/21 14:16 Urine Culture - Final Urine, Clean Catch MIXED PAUL DAY 2 Med Orders - Current: Current Medications Acetaminophen (Acetaminophen 325 Mg Tab) 650 mg PO Q4H PRN PRN Reason: Pain (Mild 1-3)/fever Last Admin: 03/05/21 16:58 Dose: 650 mg Documented by: Hydrocodone Bitart/Acetaminophen (Acetaminophen/Hydrocodone 325-5 Mg Tab) 1 tab PO BID PRN PRN Reason: PAIN Albuterol (Albuterol 0.083% 2.5 Mg/3 Ml Neb Soln) 2.5 mg NEB Q4H PRN PRN Reason: Shortness Of Breath/wheezing Allopurinol (Allopurinol 100 Mg Ptom) 100 mg PO DAILY [facility] Last Admin: 03/07/21 08:59 Dose: 100 mg Documented by: Amoxicillin/Clavulanate Potassium (Amoxicillin/Clavulanate K 500-125 Mg Tab) 1 tab PO BID [facility] Last Admin: 03/07/21 09:01 Dose: 1 tab Documented by: Aspirin (Aspirin 81 Mg Tab.Ec) 81 mg PO DAILY [facility] Last Admin: 03/07/21 09:02 Dose: 81 mg Documented by: Atorvastatin Calcium (Atorvastatin 10 Mg Tab) 10 mg PO DAILY [facility] Last Admin: 03/07/21 09:02 Dose: 10 mg Documented by: Enoxaparin Sodium (Enoxaparin 30 Mg/0.3 Ml Syringe) 30 mg SUBCUT BEDTIME [facility] Last Admin: 03/06/21 21:45 Dose: 30 mg Documented by: Fluticasone Propionate (Fluticasone Propionate Nasal [place] 16 Gm Bottle) 0 gm NASBOTH DAILY [facility] Last Admin: 03/07/21 09:02 Dose: 2 spray Documented by: Gabapentin (Gabapentin 100 Mg Ptom) 100 mg PO BID [facility] Last Admin: 03/07/21 09:01 Dose: 100 mg Documented by: Lactobacillus Rhamnosus (Lactobacillus Rhamnosus Gg (Probiotic) Cap) 1 cap PO BID [facility] Last Admin: 03/07/21 09:01 Dose: 1 cap Documented by: Losartan Potassium (Losartan 25 Mg Ptom) 25 mg PO DAILY [facility] Last Admin: 03/07/21 09:00 Dose: 25 mg Documented by: Melatonin (Melatonin 3 Mg Tab) 9 mg PO BEDTIME [facility] Last Admin: 03/06/21 21:44 Dose: 9 mg Documented by: Metoprolol Tartrate (Metoprolol Tartrate 25 Mg Tab) 25 mg PO BID [facility] Last Admin: 03/07/21 09:02 Dose: 25 mg Documented by: Montelukast Sodium (Montelukast 10 Mg Tab) 10 mg PO QPM [facility] Last Admin: 03/06/21 18:42 Dose: 10 mg Documented by: Ondansetron HCl (Ondansetron 4 Mg/2 Ml Sdv) 4 mg IV Q4H PRN PRN Reason: Nausea/Vomiting Omeprazole 20mg (Ptom) 0 each PO ACBREAKFAST [facility] Last Admin: 03/07/21 08:59 Dose: 1 each Documented by: Venlafaxine 150mg (Ptom) 0 each PO DAILY [facility] Last Admin: 03/07/21 09:01 Dose: 1 each Documented by: Polyethylene Glycol (Polyethylene Glycol 3350 Powder 17 Gm Packet) 17 gm PO DAILY PRN PRN Reason: Constipation Last Admin: 03/06/21 14:29 Dose: 17 gm Documented by: Sodium Chloride (Sodium Chloride 0.9% 10 Ml Syringe) 10 ml FLUSH ASDIRECTED PRN PRN Reason: Keep Vein Open Discontinued Medications Albuterol (Albuterol 8 Gm Inhaler) 0 gm INH Q4H PRN PRN Reason: Shortness of Breath Allopurinol (Allopurinol 100 Mg Tab) 100 mg PO DAILY [facility] Last Admin: 03/04/21 09:17 Dose: 100 mg Documented by: Amoxicillin/Clavulanate Potassium (Amoxicillin/Clavulanate K 875-125 Mg Tab) 1 tab PO BID [facility] Last Admin: 03/04/21 09:17 Dose: 1 tab Documented by: Betamethasone Dipropionate (Betamethasone Dipropionate 0.05% Oint 15 Gm Tube) 0 gm TOP BID [facility] Last Admin: 03/03/21 12:51 Dose: Not Given Documented by: Cholecalciferol (Cholecalciferol (Vitamin D3) 25 Mcg Tab) 25 mcg PO DAILY [facility] Last Admin: 03/03/21 10:02 Dose: 25 mcg Documented by: Furosemide (Furosemide 40 Mg Tab) 20 mg PO DAILY PRN PRN Reason: Edema Gabapentin (Gabapentin 100 Mg Cap) 100 mg PO BID [facility] Last Admin: 03/04/21 09:17 Dose: 100 mg Documented by: Lactated Ringer's (Ringers, Lactated) 1,000 mls @ 0 mls/hr IV ASDIRECTED [facility] Last Admin: 03/02/21 16:02 Dose: 25 mls/hr Documented by: Ceftriaxone Sodium 1 gm/ (Sodium Chloride) 50 mls @ 100 mls/hr IV Q24H [facility] Loratadine (Loratadine 10 Mg Tab.Dis) 10 mg PO DAILY PRN PRN Reason: Allergies Losartan Potassium (Losartan 25 Mg Tab) 25 mg PO DAILY [facility] Last Admin: 03/04/21 09:18 Dose: 25 mg Documented by: Mupirocin (Mupirocin Oint 22 Gm Tube) 0 gm TOP TID PRN PRN Reason: Rash Non-Formulary Medication (Fluticasone Propionate [Flovent]) 2 sprays IH DAILY [facility] Last Admin: 03/03/21 12:57 Dose: Not Given Documented by: Non-Formulary Medication (Hydrocodone/Acetaminophen [Hydrocodon-Acetaminophen 5- 500]) 1 tab PO BID PRN PRN Reason: Pain Non-Formulary Medication (Loratadine [Claritin]) 10 mg PO DAILY PRN PRN Reason: Allergies Non-Formulary Medication (Omeprazole [Omeprazole]) 20 mg PO DAILY [facility] Last Admin: 03/03/21 18:03 Dose: Not Given Documented by: Non-Formulary Medication (Simvastatin [Zocor]) 20 mg PO BEDTIME [facility] Pantoprazole Sodium (Pantoprazole 40 Mg Tab.Cr) 40 mg PO ACBREAKFAST [facility] Last Admin: 03/04/21 08:00 Dose: 40 mg Documented by: Sodium Chloride (Sodium Chloride 0.9% 10 Ml Syringe) 10 ml FLUSH ASDIRECTED PRN PRN Reason: Keep Vein Open Last Admin: 03/02/21 15:59 Dose: 10 ml Documented by: Venlafaxine HCl (Venlafaxine 75 Mg Cap.Er) 150 mg PO DAILY [facility] Last Admin: 03/04/21 09:19 Dose: 150 mg Documented by: - Exam Quality Assessment: No: Supplemental Oxygen General: Alert, Cooperative, No Acute Distress. No: Oriented Lungs: Normal Respiratory Effort GI/Abdominal Exam: Soft, No Distention Extremities: No Pedal Edema Psy/Mental Status: Alert, Normal Affect - Patient Data Result Diagrams: 03/04/21 04:40 03/04/21 04:40 Paulino Results Last 24 hrs: Microbiology 03/04/21 14:16 Urine Culture - Final Urine, Clean Catch MIXED PAUL DAY 2 Sepsis Event Note - Evaluation Sepsis Screening Result: No Definite Risk - Focused Exam Vital Signs: Vital Signs Temp Pulse Pulse Resp BP BP Pulse Ox 03/07/21 11:00 36.3 C 52 L 16 137/72 97 03/07/21 09:02 72 133/68 03/07/21 09:00 133/68 03/07/21 07:00 36.6 C 57 L 16 133/68 97 - Problem List Review Problem List Initiated/Reviewed/Updated: Yes - Plan Plan:: ASSESSMENT AND PLAN - [id number] had been symptomatic for the past 3 weeks, just tested positive 3 days prior to admission (02/28). I suspect her Covid illness was present at the beginning of February and this is a residual positive. Planning to continue isolation for 10 days from positive test. -No further intervention required at this time GENERALIZED WEAKNESS-this is likely multifactorial related to her progressive dementia and recent COVID-19 infection. MRI of the brain showed moderate age- related atrophy. Urinalysis suggested possible urinary tract infection but culture negative. -Physical therapy -Treat sinusitis as below -Follow-up urine culture SINUSITIS-evidence of acute infection noted on recent CT scan. -Augmentin twice daily x1 week (and after doses on 03/09) ELEVATED TROPONIN-no evidence of acute CT on EKG. Mild elevation may be related to recent Covid infection. CHRONIC KIDNEY DISEASE STAGE IIIb-kidney function stable. -Closely monitor urine output and renal function PROGRESSIVE DEMENTIA-suspect Alzheimer's dementia with possible contribution from vascular dementia. No behavior issues. -Melatonin at bedtime MAINTENANCE ISSUES -DVT prophylaxis; enoxaparin 30 mg subcu daily -GI prophylaxis; not indicated -Granados catheter; not indicated -Nutrition; 2 g sodium diet ADMISSION STATUS-this patient will be admitted to observation status, expect no more than a one night hospital stay for evaluation and management of problems as outlined above. DISPOSITION-anticipate discharge to subacute rehab after the hospital stay. We are waiting for her to complete her isolation. And find a alf bed for her. She is stable and ready for discharge at this time but unfortunately we do not have a safe discharge plan. Manuelito Shen MD
[2021-03-07] MEDS: Montelukast 10 MG Tab PO SCH (18:32)
[2021-03-07] MEDS: Melatonin 3 MG Tab PO SCH (20:40)
[2021-03-07] MEDS: Enoxaparin 30 MG/0.3 ML Syringe SUBCUT SCH (20:41)
[2021-03-08] MEDS: Amoxicillin/Clavulanate K 500-125 MG Tab PO SCH ×2 (08:43→20:36)
[2021-03-08] MEDS: Aspirin 81 MG Tab.EC PO SCH (08:43)
[2021-03-08] MEDS: Metoprolol Tartrate 25 MG Tab PO SCH ×2 (08:43→20:36)
[2021-03-08] MEDS: Lactobacillus Rhamnosus GG (Probiotic) Cap PO SCH ×2 (08:43→20:36)
[2021-03-08] MEDS: Losartan 25 MG **PTOM PO SCH (08:44)
[2021-03-08] MEDS: OMEPRAZOLE 20MG **PTOM PO SCH (08:44)
[2021-03-08] MEDS: ALLOPURINOL 100 MG PO SCH (08:44)
[2021-03-08] MEDS: Fluticasone Propionate Nasal Spray 16 GM Bottle NASBOTH SCH (08:45)
[2021-03-08] MEDS: VENLAFAXINE 150 MG PO SCH (08:46)
[2021-03-08] MEDS: Gabapentin 100 MG **PTOM PO SCH ×2 (08:46→20:41)
[2021-03-08] MEDS: atorvaSTATin 10 MG Tab PO SCH (10:36)
--- NOTE | 2021-03-08 13:40 | PCM.PN ---
- General Info Date of Service: 03/08/21 Subjective Update: No acute events overnight. Patient feels well. No headache, shortness of breath or nausea. Getting around well with assistance. Waiting for her [facility] bed which will be available on Thursday. Functional Status: Reports: Pain Controlled, Tolerating Diet - Patient Data Vitals - Most Recent: Last Vital Signs Temp 35.7 C L 03/08/21 10:59 Pulse 55 L 03/08/21 10:59 Resp 18 03/08/21 10:59 BP 127/77 03/08/21 10:59 Pulse Ox 97 03/08/21 10:59 Weight - Most Recent: 62.1 kg I&O - Last 24 Hours: Intake & Output 03/07/21 03/08/21 03/08/21 22:59 06:59 14:59 Intake Total 660 620 Output Total 600 Balance 660 20 Med Orders - Current: Current Medications Acetaminophen (Acetaminophen 325 Mg Tab) 650 mg PO Q4H PRN PRN Reason: Pain (Mild 1-3)/fever Last Admin: 03/05/21 16:58 Dose: 650 mg Documented by: Hydrocodone Bitart/Acetaminophen (Acetaminophen/Hydrocodone 325-5 Mg Tab) 1 tab PO BID PRN PRN Reason: PAIN Albuterol (Albuterol 0.083% 2.5 Mg/3 Ml Neb Soln) 2.5 mg NEB Q4H PRN PRN Reason: Shortness Of Breath/wheezing Allopurinol (Allopurinol 100 Mg Ptom) 100 mg PO DAILY [facility] Last Admin: 03/08/21 08:44 Dose: 100 mg Documented by: Amoxicillin/Clavulanate Potassium (Amoxicillin/Clavulanate K 500-125 Mg Tab) 1 tab PO BID [facility] Last Admin: 03/08/21 08:43 Dose: 1 tab Documented by: Aspirin (Aspirin 81 Mg Tab.Ec) 81 mg PO DAILY [facility] Last Admin: 03/08/21 08:43 Dose: 81 mg Documented by: Atorvastatin Calcium (Atorvastatin 10 Mg Tab) 10 mg PO DAILY [facility] Last Admin: 03/08/21 10:36 Dose: 10 mg Documented by: Enoxaparin Sodium (Enoxaparin 30 Mg/0.3 Ml Syringe) 30 mg SUBCUT BEDTIME [facility] Last Admin: 03/07/21 20:41 Dose: 30 mg Documented by: Fluticasone Propionate (Fluticasone Propionate Nasal [place] 16 Gm Bottle) 0 gm NASBOTH DAILY [facility] Last Admin: 03/08/21 08:45 Dose: Not Given Documented by: Gabapentin (Gabapentin 100 Mg Ptom) 100 mg PO BID [facility] Last Admin: 03/08/21 08:46 Dose: 100 mg Documented by: Lactobacillus Rhamnosus (Lactobacillus Rhamnosus Gg (Probiotic) Cap) 1 cap PO BID [facility] Last Admin: 03/08/21 08:43 Dose: 1 cap Documented by: Losartan Potassium (Losartan 25 Mg Ptom) 25 mg PO DAILY [facility] Last Admin: 03/08/21 08:44 Dose: 25 mg Documented by: Melatonin (Melatonin 3 Mg Tab) 9 mg PO BEDTIME [facility] Last Admin: 03/07/21 20:40 Dose: 9 mg Documented by: Metoprolol Tartrate (Metoprolol Tartrate 25 Mg Tab) 25 mg PO BID [facility] Last Admin: 03/08/21 08:43 Dose: 25 mg Documented by: Montelukast Sodium (Montelukast 10 Mg Tab) 10 mg PO QPM [facility] Last Admin: 03/07/21 18:32 Dose: 10 mg Documented by: Ondansetron HCl (Ondansetron 4 Mg/2 Ml Sdv) 4 mg IV Q4H PRN PRN Reason: Nausea/Vomiting Omeprazole 20mg (Ptom) 0 each PO ACBREAKFAST [facility] Last Admin: 03/08/21 08:44 Dose: 1 each Documented by: Venlafaxine 150mg (Ptom) 0 each PO DAILY [facility] Last Admin: 03/08/21 08:46 Dose: 1 each Documented by: Polyethylene Glycol (Polyethylene Glycol 3350 Powder 17 Gm Packet) 17 gm PO DAILY PRN PRN Reason: Constipation Last Admin: 03/06/21 14:29 Dose: 17 gm Documented by: Sodium Chloride (Sodium Chloride 0.9% 10 Ml Syringe) 10 ml FLUSH ASDIRECTED PRN PRN Reason: Keep Vein Open Discontinued Medications Albuterol (Albuterol 8 Gm Inhaler) 0 gm INH Q4H PRN PRN Reason: Shortness of Breath Allopurinol (Allopurinol 100 Mg Tab) 100 mg PO DAILY [facility] Last Admin: 03/04/21 09:17 Dose: 100 mg Documented by: Amoxicillin/Clavulanate Potassium (Amoxicillin/Clavulanate K 875-125 Mg Tab) 1 tab PO BID [facility] Last Admin: 03/04/21 09:17 Dose: 1 tab Documented by: Betamethasone Dipropionate (Betamethasone Dipropionate 0.05% Oint 15 Gm Tube) 0 gm TOP BID [facility] Last Admin: 03/03/21 12:51 Dose: Not Given Documented by: Cholecalciferol (Cholecalciferol (Vitamin D3) 25 Mcg Tab) 25 mcg PO DAILY [facility] Last Admin: 03/03/21 10:02 Dose: 25 mcg Documented by: Furosemide (Furosemide 40 Mg Tab) 20 mg PO DAILY PRN PRN Reason: Edema Gabapentin (Gabapentin 100 Mg Cap) 100 mg PO BID [facility] Last Admin: 03/04/21 09:17 Dose: 100 mg Documented by: Lactated Ringer's (Ringers, Lactated) 1,000 mls @ 0 mls/hr IV ASDIRECTED [facility] Last Admin: 03/02/21 16:02 Dose: 25 mls/hr Documented by: Ceftriaxone Sodium 1 gm/ (Sodium Chloride) 50 mls @ 100 mls/hr IV Q24H [facility] Loratadine (Loratadine 10 Mg Tab.Dis) 10 mg PO DAILY PRN PRN Reason: Allergies Losartan Potassium (Losartan 25 Mg Tab) 25 mg PO DAILY [facility] Last Admin: 03/04/21 09:18 Dose: 25 mg Documented by: Mupirocin (Mupirocin Oint 22 Gm Tube) 0 gm TOP TID PRN PRN Reason: Rash Non-Formulary Medication (Fluticasone Propionate [Flovent]) 2 sprays IH DAILY [facility] Last Admin: 03/03/21 12:57 Dose: Not Given Documented by: Non-Formulary Medication (Hydrocodone/Acetaminophen [Hydrocodon-Acetaminophen 5- 500]) 1 tab PO BID PRN PRN Reason: Pain Non-Formulary Medication (Loratadine [Claritin]) 10 mg PO DAILY PRN PRN Reason: Allergies Non-Formulary Medication (Omeprazole [Omeprazole]) 20 mg PO DAILY [facility] Last Admin: 03/03/21 18:03 Dose: Not Given Documented by: Non-Formulary Medication (Simvastatin [Zocor]) 20 mg PO BEDTIME [facility] Pantoprazole Sodium (Pantoprazole 40 Mg Tab.Cr) 40 mg PO ACBREAKFAST [facility] Last Admin: 03/04/21 08:00 Dose: 40 mg Documented by: Sodium Chloride (Sodium Chloride 0.9% 10 Ml Syringe) 10 ml FLUSH ASDIRECTED PRN PRN Reason: Keep Vein Open Last Admin: 03/02/21 15:59 Dose: 10 ml Documented by: Venlafaxine HCl (Venlafaxine 75 Mg Cap.Er) 150 mg PO DAILY [facility] Last Admin: 03/04/21 09:19 Dose: 150 mg Documented by: - Exam Quality Assessment: No: Supplemental Oxygen General: Alert, Cooperative, No Acute Distress. No: Oriented Lungs: Normal Respiratory Effort GI/Abdominal Exam: Soft, No Distention Extremities: No Pedal Edema Psy/Mental Status: Alert, Normal Affect - Patient Data Result Diagrams: 03/04/21 04:40 03/04/21 04:40 Sepsis Event Note - Evaluation Sepsis Screening Result: No Definite Risk - Focused Exam Vital Signs: Vital Signs Temp Pulse Pulse Resp BP BP Pulse Ox 03/08/21 10:59 35.7 C L 55 L 18 127/77 97 03/08/21 08:44 143/78 H 03/08/21 08:43 57 L 143/78 H 03/08/21 07:48 35.4 C L 57 L 18 143/78 H 96 03/08/21 03:00 35.3 C L 50 L 18 128/69 94 L - Problem List Review Problem List Initiated/Reviewed/Updated: Yes - Plan Plan:: ASSESSMENT AND PLAN - [id number] for the past 3 weeks, just tested positive 3 days prior to admission (02/28). I suspect her Covid illness was present at the beginning of February and this is a residual positive. Planning to continue isolation for 10 days from positive test. -No further intervention required at this time GENERALIZED WEAKNESS-this is likely multifactorial related to her progressive dementia and recent COVID-19 infection. MRI of the brain showed moderate age- related atrophy. -Physical therapy -Treat sinusitis as below SINUSITIS-evidence of acute infection noted on recent CT scan. -Augmentin twice daily x1 week (and after doses on 03/09) ELEVATED TROPONIN-no evidence of acute [place] on EKG. Mild elevation may be related to recent Covid infection. CHRONIC KIDNEY DISEASE STAGE IIIb-kidney function stable. PROGRESSIVE DEMENTIA-suspect Alzheimer's dementia with possible contribution from vascular dementia. No behavior issues. -Melatonin at bedtime MAINTENANCE ISSUES -DVT prophylaxis; enoxaparin 30 mg subcu daily -GI prophylaxis; not indicated -Granados catheter; not indicated -Nutrition; 2 g sodium diet ADMISSION STATUS-this patient will be admitted to observation status, expect no more than a one night hospital stay for evaluation and management of problems as outlined above. DISPOSITION-anticipate discharge to subacute rehab after the hospital stay. We are waiting for her to complete her isolation. The plan is for her to go to the [facility] Thursday for subacute rehab. Manuelito Shen MD
[2021-03-08] MEDS: Montelukast 10 MG Tab PO SCH (17:23)
[2021-03-08] MEDS: Melatonin 3 MG Tab PO SCH (20:39)
[2021-03-08] MEDS: Enoxaparin 30 MG/0.3 ML Syringe SUBCUT SCH (20:39)
[2021-03-09] MEDS: Acetaminophen 325 MG Tab PO PRN (04:23)
[2021-03-09] MEDS: Lactobacillus Rhamnosus GG (Probiotic) Cap PO SCH ×2 (08:42→20:58)
[2021-03-09] MEDS: atorvaSTATin 10 MG Tab PO SCH (08:42)
[2021-03-09] MEDS: Aspirin 81 MG Tab.EC PO SCH (08:42)
[2021-03-09] MEDS: Amoxicillin/Clavulanate K 500-125 MG Tab PO SCH ×2 (08:42→20:58)
[2021-03-09] MEDS: Metoprolol Tartrate 25 MG Tab PO SCH ×2 (08:45→20:58)
[2021-03-09] MEDS: Fluticasone Propionate Nasal Spray 16 GM Bottle NASBOTH SCH (08:46)
[2021-03-09] MEDS: Losartan 25 MG **PTOM PO SCH (08:46)
[2021-03-09] MEDS: OMEPRAZOLE 20MG **PTOM PO SCH (08:47)
[2021-03-09] MEDS: Gabapentin 100 MG **PTOM PO SCH ×2 (09:03→20:57)
[2021-03-09] MEDS: VENLAFAXINE 150 MG PO SCH (09:03)
[2021-03-09] MEDS: ALLOPURINOL 100 MG PO SCH (09:03)
--- NOTE | 2021-03-09 12:14 | PCM.PN ---
- General Info Date of Service: 03/09/21 Subjective Update: No acute events overnight. Patient continues to report that she feels well. There have been no behavior issues. No fevers. Appetite has been good. Weak but otherwise doing well. Functional Status: Reports: Pain Controlled, Tolerating Diet - Review of Systems General: Reports: Weakness Neurological: Reports: Confusion - Patient Data Vitals - Most Recent: Last Vital Signs Temp 35.6 C L 03/09/21 11:03 Pulse 45 L 03/09/21 11:03 Resp 18 03/09/21 11:03 BP 154/89 H 03/09/21 11:03 Pulse Ox 95 03/09/21 11:03 Weight - Most Recent: 59.511 kg I&O - Last 24 Hours: Intake & Output 03/08/21 03/09/21 03/09/21 22:59 06:59 14:59 Intake Total 820 320 Output Total 700 300 Balance 120 20 Med Orders - Current: Current Medications Acetaminophen (Acetaminophen 325 Mg Tab) 650 mg PO Q4H PRN PRN Reason: Pain (Mild 1-3)/fever Last Admin: 03/09/21 04:23 Dose: 650 mg Documented by: Hydrocodone Bitart/Acetaminophen (Acetaminophen/Hydrocodone 325-5 Mg Tab) 1 tab PO BID PRN PRN Reason: PAIN Albuterol (Albuterol 0.083% 2.5 Mg/3 Ml Neb Soln) 2.5 mg NEB Q4H PRN PRN Reason: Shortness Of Breath/wheezing Allopurinol (Allopurinol 100 Mg Ptom) 100 mg PO DAILY [facility] Last Admin: 03/09/21 09:03 Dose: 100 mg Documented by: Amoxicillin/Clavulanate Potassium (Amoxicillin/Clavulanate K 500-125 Mg Tab) 1 tab PO BID [facility] Last Admin: 03/09/21 08:42 Dose: 1 tab Documented by: Aspirin (Aspirin 81 Mg Tab.Ec) 81 mg PO DAILY [facility] Last Admin: 03/09/21 08:42 Dose: 81 mg Documented by: Atorvastatin Calcium (Atorvastatin 10 Mg Tab) 10 mg PO DAILY [facility] Last Admin: 03/09/21 08:42 Dose: 10 mg Documented by: Enoxaparin Sodium (Enoxaparin 30 Mg/0.3 Ml Syringe) 30 mg SUBCUT BEDTIME [facility] Last Admin: 03/08/21 20:39 Dose: 30 mg Documented by: Fluticasone Propionate (Fluticasone Propionate Nasal [place] 16 Gm Bottle) 0 gm NASBOTH DAILY [facility] Last Admin: 03/09/21 08:46 Dose: Not Given Documented by: Gabapentin (Gabapentin 100 Mg Ptom) 100 mg PO BID [facility] Last Admin: 03/09/21 09:03 Dose: 100 mg Documented by: Lactobacillus Rhamnosus (Lactobacillus Rhamnosus Gg (Probiotic) Cap) 1 cap PO BID [facility] Last Admin: 03/09/21 08:42 Dose: 1 cap Documented by: Losartan Potassium (Losartan 25 Mg Ptom) 25 mg PO DAILY [facility] Last Admin: 03/09/21 08:46 Dose: 25 mg Documented by: Melatonin (Melatonin 3 Mg Tab) 9 mg PO BEDTIME [facility] Last Admin: 03/08/21 20:39 Dose: 9 mg Documented by: Metoprolol Tartrate (Metoprolol Tartrate 25 Mg Tab) 25 mg PO BID [facility] Last Admin: 03/09/21 08:45 Dose: 25 mg Documented by: Montelukast Sodium (Montelukast 10 Mg Tab) 10 mg PO QPM [facility] Last Admin: 03/08/21 17:23 Dose: 10 mg Documented by: Ondansetron HCl (Ondansetron 4 Mg/2 Ml Sdv) 4 mg IV Q4H PRN PRN Reason: Nausea/Vomiting Omeprazole 20mg (Ptom) 0 each PO ACBREAKFAST [facility] Last Admin: 03/09/21 08:47 Dose: 1 each Documented by: Venlafaxine 150mg (Ptom) 0 each PO DAILY [facility] Last Admin: 03/09/21 09:03 Dose: 1 each Documented by: Polyethylene Glycol (Polyethylene Glycol 3350 Powder 17 Gm Packet) 17 gm PO DAILY PRN PRN Reason: Constipation Last Admin: 03/06/21 14:29 Dose: 17 gm Documented by: Sodium Chloride (Sodium Chloride 0.9% 10 Ml Syringe) 10 ml FLUSH ASDIRECTED PRN PRN Reason: Keep Vein Open Discontinued Medications Albuterol (Albuterol 8 Gm Inhaler) 0 gm INH Q4H PRN PRN Reason: Shortness of Breath Allopurinol (Allopurinol 100 Mg Tab) 100 mg PO DAILY [facility] Last Admin: 03/04/21 09:17 Dose: 100 mg Documented by: Amoxicillin/Clavulanate Potassium (Amoxicillin/Clavulanate K 875-125 Mg Tab) 1 tab PO BID [facility] Last Admin: 03/04/21 09:17 Dose: 1 tab Documented by: Betamethasone Dipropionate (Betamethasone Dipropionate 0.05% Oint 15 Gm Tube) 0 gm TOP BID [facility] Last Admin: 03/03/21 12:51 Dose: Not Given Documented by: Cholecalciferol (Cholecalciferol (Vitamin D3) 25 Mcg Tab) 25 mcg PO DAILY [facility] Last Admin: 03/03/21 10:02 Dose: 25 mcg Documented by: Furosemide (Furosemide 40 Mg Tab) 20 mg PO DAILY PRN PRN Reason: Edema Gabapentin (Gabapentin 100 Mg Cap) 100 mg PO BID [facility] Last Admin: 03/04/21 09:17 Dose: 100 mg Documented by: Lactated Ringer's (Ringers, Lactated) 1,000 mls @ 0 mls/hr IV ASDIRECTED [facility] Last Admin: 03/02/21 16:02 Dose: 25 mls/hr Documented by: Ceftriaxone Sodium 1 gm/ (Sodium Chloride) 50 mls @ 100 mls/hr IV Q24H [facility] Loratadine (Loratadine 10 Mg Tab.Dis) 10 mg PO DAILY PRN PRN Reason: Allergies Losartan Potassium (Losartan 25 Mg Tab) 25 mg PO DAILY [facility] Last Admin: 03/04/21 09:18 Dose: 25 mg Documented by: Mupirocin (Mupirocin Oint 22 Gm Tube) 0 gm TOP TID PRN PRN Reason: Rash Non-Formulary Medication (Fluticasone Propionate [Flovent]) 2 sprays IH DAILY [facility] Last Admin: 03/03/21 12:57 Dose: Not Given Documented by: Non-Formulary Medication (Hydrocodone/Acetaminophen [Hydrocodon-Acetaminophen 5- 500]) 1 tab PO BID PRN PRN Reason: Pain Non-Formulary Medication (Loratadine [Claritin]) 10 mg PO DAILY PRN PRN Reason: Allergies Non-Formulary Medication (Omeprazole [Omeprazole]) 20 mg PO DAILY [facility] Last Admin: 03/03/21 18:03 Dose: Not Given Documented by: Non-Formulary Medication (Simvastatin [Zocor]) 20 mg PO BEDTIME [facility] Pantoprazole Sodium (Pantoprazole 40 Mg Tab.Cr) 40 mg PO ACBREAKFAST [facility] Last Admin: 03/04/21 08:00 Dose: 40 mg Documented by: Sodium Chloride (Sodium Chloride 0.9% 10 Ml Syringe) 10 ml FLUSH ASDIRECTED PRN PRN Reason: Keep Vein Open Last Admin: 03/02/21 15:59 Dose: 10 ml Documented by: Venlafaxine HCl (Venlafaxine 75 Mg Cap.Er) 150 mg PO DAILY [facility] Last Admin: 03/04/21 09:19 Dose: 150 mg Documented by: - Exam Quality Assessment: No: Supplemental Oxygen General: Alert, Cooperative, No Acute Distress. No: Oriented Lungs: Normal Respiratory Effort GI/Abdominal Exam: Soft, No Distention Extremities: No Pedal Edema Psy/Mental Status: Alert, Normal Affect - Patient Data Result Diagrams: 03/04/21 04:40 03/04/21 04:40 Sepsis Event Note - Evaluation Sepsis Screening Result: No Definite Risk - Focused Exam Vital Signs: Vital Signs Temp Temp Pulse Pulse Resp BP BP 03/09/21 11:03 35.6 C L 45 L 18 154/89 H 03/09/21 08:46 168/75 H 03/09/21 08:45 57 L 168/75 H 03/09/21 08:18 36.0 C L 51 L 18 168/75 H 03/09/21 04:18 36.1 C 52 L 16 156/91 H Pulse Ox 03/09/21 11:03 95 03/09/21 08:46 03/09/21 08:45 03/09/21 08:18 93 L 03/09/21 04:18 94 L - Problem List Review Problem List Initiated/Reviewed/Updated: Yes - My Orders Last 24 Hours: My Active Orders 03/10/21 05:00 BASIC METABOLIC PANEL,BMP [CHEM] Timed CBC W/O DIFF,HEMOGRAM [HEME] Timed (1) - Plan Plan:: ASSESSMENT AND PLAN - [id number] for the past 3 weeks, just tested positive 3 days prior to admission (02/28). I suspect her Covid illness was present at the beginning of February and this is a residual positive. Planning to continue isolation for 10 days from positive test. -Isolation through 01/08 and discontinue on 01/09 -No further intervention required at this time GENERALIZED WEAKNESS-this is likely multifactorial related to her progressive dementia and recent COVID-19 infection. MRI of the brain showed moderate age- related atrophy. -Physical therapy -Treat sinusitis as below SINUSITIS-evidence of acute infection noted on recent CT scan. -Augmentin twice daily x1 week (complete after the end of today) ELEVATED TROPONIN-no evidence of acute [place] on EKG. Mild elevation may be related to recent Covid infection. CHRONIC KIDNEY DISEASE STAGE IIIb-kidney function stable. PROGRESSIVE DEMENTIA-suspect Alzheimer's dementia with possible contribution from vascular dementia. No behavior issues. -Melatonin at bedtime MAINTENANCE ISSUES -DVT prophylaxis; enoxaparin 30 mg subcu daily -GI prophylaxis; not indicated -Granados catheter; not indicated -Nutrition; 2 g sodium diet ADMISSION STATUS-this patient will be admitted to observation status, expect no more than a one night hospital stay for evaluation and management of problems as outlined above. DISPOSITION-anticipate discharge to subacute rehab after the hospital stay. We are waiting for her to complete her isolation. The plan is for her to go to the long-term Thursday for subacute rehab. Manuelito Shen MD
[2021-03-09] MEDS: Montelukast 10 MG Tab PO SCH (16:29)
[2021-03-09] MEDS: Enoxaparin 30 MG/0.3 ML Syringe SUBCUT SCH (20:58)
[2021-03-09] MEDS: Melatonin 3 MG Tab PO SCH (20:59)
[2021-03-10] MEDS: OMEPRAZOLE 20MG **PTOM PO SCH (08:23)
[2021-03-10] MEDS: Amoxicillin/Clavulanate K 500-125 MG Tab PO SCH ×2 (08:24→20:11)
[2021-03-10] MEDS: Losartan 25 MG **PTOM PO SCH (08:29)
[2021-03-10] MEDS: Lactobacillus Rhamnosus GG (Probiotic) Cap PO SCH ×2 (08:30→20:11)
[2021-03-10] MEDS: Fluticasone Propionate Nasal Spray 16 GM Bottle NASBOTH SCH (08:31)
[2021-03-10] MEDS: Aspirin 81 MG Tab.EC PO SCH (08:31)
[2021-03-10] MEDS: Metoprolol Tartrate 25 MG Tab PO SCH ×2 (08:34→20:11)
[2021-03-10] MEDS: Gabapentin 100 MG **PTOM PO SCH ×2 (08:35→20:11)
[2021-03-10] MEDS: VENLAFAXINE 150 MG PO SCH (08:36)
[2021-03-10] MEDS: ALLOPURINOL 100 MG PO SCH (08:37)
[2021-03-10] MEDS: atorvaSTATin 10 MG Tab PO SCH (08:38)
--- NOTE | 2021-03-10 12:39 | PCM.PN ---
- General Info Date of Service: 03/10/21 Subjective Update: No acute events overnight. Patient feels well. Weak but otherwise doing well. No fevers. Appetite good. - Patient Data Vitals - Most Recent: Last Vital Signs Temp 35.7 C L 03/10/21 10:30 Pulse 45 L 03/10/21 10:30 Resp 18 03/10/21 10:30 BP 142/79 H 03/10/21 10:30 Pulse Ox 97 03/10/21 10:30 Weight - Most Recent: 61.037 kg I&O - Last 24 Hours: Intake & Output 03/09/21 03/10/21 03/10/21 22:59 06:59 14:59 Intake Total 300 360 Output Total 300 400 Balance -300 300 -40 Lab Results Last 24 Hours: Laboratory Results - last 24 hr 03/10/21 03/10/21 Range/Units 05:00 05:00 WBC 7.9 (4.5-11.0) K/uL RBC 4.17 (3.30-5.50) M/uL Hgb 12.5 (12.0-15.0) g/dL Hct 38.1 (36.0-48.0) % MCV 91 (80-98) fL MCH 30 (27-31) pg MCHC 33 (32-36) % Plt Count 402 H (150-400) K/uL Sodium 134 L (140-148) mmol/L Potassium 4.2 (3.6-5.2) mmol/L Chloride 101 (100-108) mmol/L Carbon Dioxide 25 (21-32) mmol/L Anion Gap 12.2 (5.0-14.0) mmol/L BUN 22 H (7-18) mg/dL Creatinine 1.2 H (0.6-1.0) mg/dL Est Cr Clr Drug Dosing 27.74 mL/min Estimated GFR (MDRD) 43 L (>60) Glucose 95 (74-106) mg/dL Calcium 8.9 (8.5-10.1) mg/dL Med Orders - Current: Current Medications Acetaminophen (Acetaminophen 325 Mg Tab) 650 mg PO Q4H PRN PRN Reason: Pain (Mild 1-3)/fever Last Admin: 03/09/21 04:23 Dose: 650 mg Documented by: Hydrocodone Bitart/Acetaminophen (Acetaminophen/Hydrocodone 325-5 Mg Tab) 1 tab PO BID PRN PRN Reason: PAIN Albuterol (Albuterol 0.083% 2.5 Mg/3 Ml Neb Soln) 2.5 mg NEB Q4H PRN PRN Reason: Shortness Of Breath/wheezing Allopurinol (Allopurinol 100 Mg Ptom) 100 mg PO DAILY [facility] Last Admin: 03/10/21 08:37 Dose: 100 mg Documented by: Amoxicillin/Clavulanate Potassium (Amoxicillin/Clavulanate K 500-125 Mg Tab) 1 tab PO BID [facility] Last Admin: 03/10/21 08:24 Dose: 1 tab Documented by: Aspirin (Aspirin 81 Mg Tab.Ec) 81 mg PO DAILY [facility] Last Admin: 03/10/21 08:31 Dose: 81 mg Documented by: Atorvastatin Calcium (Atorvastatin 10 Mg Tab) 10 mg PO DAILY [facility] Last Admin: 03/10/21 08:38 Dose: 10 mg Documented by: Enoxaparin Sodium (Enoxaparin 30 Mg/0.3 Ml Syringe) 30 mg SUBCUT BEDTIME [facility] Last Admin: 03/09/21 20:58 Dose: 30 mg Documented by: Fluticasone Propionate (Fluticasone Propionate Nasal [place] 16 Gm Bottle) 0 gm NASBOTH DAILY [facility] Last Admin: 03/10/21 08:31 Dose: 1 spray Documented by: Gabapentin (Gabapentin 100 Mg Ptom) 100 mg PO BID [facility] Last Admin: 03/10/21 08:35 Dose: 100 mg Documented by: Lactobacillus Rhamnosus (Lactobacillus Rhamnosus Gg (Probiotic) Cap) 1 cap PO BID [facility] Last Admin: 03/10/21 08:30 Dose: 1 cap Documented by: Losartan Potassium (Losartan 25 Mg Ptom) 25 mg PO DAILY [facility] Last Admin: 03/10/21 08:29 Dose: 25 mg Documented by: Melatonin (Melatonin 3 Mg Tab) 9 mg PO BEDTIME [facility] Last Admin: 03/09/21 20:59 Dose: 9 mg Documented by: Metoprolol Tartrate (Metoprolol Tartrate 25 Mg Tab) 25 mg PO BID [facility] Last Admin: 03/10/21 08:34 Dose: 25 mg Documented by: Montelukast Sodium (Montelukast 10 Mg Tab) 10 mg PO QPM [facility] Last Admin: 03/09/21 16:29 Dose: 10 mg Documented by: Ondansetron HCl (Ondansetron 4 Mg/2 Ml Sdv) 4 mg IV Q4H PRN PRN Reason: Nausea/Vomiting Omeprazole 20mg (Ptom) 0 each PO ACBREAKFAST [facility] Last Admin: 03/10/21 08:23 Dose: 1 each Documented by: Venlafaxine 150mg (Ptom) 0 each PO DAILY [facility] Last Admin: 03/10/21 08:36 Dose: 1 each Documented by: Polyethylene Glycol (Polyethylene Glycol 3350 Powder 17 Gm Packet) 17 gm PO D AILY PRN PRN Reason: Constipation Last Admin: 03/06/21 14:29 Dose: 17 gm Documented by: Sodium Chloride (Sodium Chloride 0.9% 10 Ml Syringe) 10 ml FLUSH ASDIRECTED PRN PRN Reason: Keep Vein Open Discontinued Medications Albuterol (Albuterol 8 Gm Inhaler) 0 gm INH Q4H PRN PRN Reason: Shortness of Breath Allopurinol (Allopurinol 100 Mg Tab) 100 mg PO DAILY [facility] Last Admin: 03/04/21 09:17 Dose: 100 mg Documented by: Amoxicillin/Clavulanate Potassium (Amoxicillin/Clavulanate K 875-125 Mg Tab) 1 tab PO BID [facility] Last Admin: 03/04/21 09:17 Dose: 1 tab Documented by: Betamethasone Dipropionate (Betamethasone Dipropionate 0.05% Oint 15 Gm Tube) 0 gm TOP BID [facility] Last Admin: 03/03/21 12:51 Dose: Not Given Documented by: Cholecalciferol (Cholecalciferol (Vitamin D3) 25 Mcg Tab) 25 mcg PO DAILY [facility] Last Admin: 03/03/21 10:02 Dose: 25 mcg Documented by: Furosemide (Furosemide 40 Mg Tab) 20 mg PO DAILY PRN PRN Reason: Edema Gabapentin (Gabapentin 100 Mg Cap) 100 mg PO BID [facility] Last Admin: 03/04/21 09:17 Dose: 100 mg Documented by: Lactated Ringer's (Ringers, Lactated) 1,000 mls @ 0 mls/hr IV ASDIRECTED [facility] Last Admin: 03/02/21 16:02 Dose: 25 mls/hr Documented by: Ceftriaxone Sodium 1 gm/ (Sodium Chloride) 50 mls @ 100 mls/hr IV Q24H [facility] Loratadine (Loratadine 10 Mg Tab.Dis) 10 mg PO DAILY PRN PRN Reason: Allergies Losartan Potassium (Losartan 25 Mg Tab) 25 mg PO DAILY [facility] Last Admin: 03/04/21 09:18 Dose: 25 mg Documented by: Mupirocin (Mupirocin Oint 22 Gm Tube) 0 gm TOP TID PRN PRN Reason: Rash Non-Formulary Medication (Fluticasone Propionate [Flovent]) 2 sprays IH DAILY [facility] Last Admin: 03/03/21 12:57 Dose: Not Given Documented by: Non-Formulary Medication (Hydrocodone/Acetaminophen [Hydrocodon-Acetaminophen 5- 500]) 1 tab PO BID PRN PRN Reason: Pain Non-Formulary Medication (Loratadine [Claritin]) 10 mg PO DAILY PRN PRN Reason: Allergies Non-Formulary Medication (Omeprazole [Omeprazole]) 20 mg PO DAILY [facility] Last Admin: 03/03/21 18:03 Dose: Not Given Documented by: Non-Formulary Medication (Simvastatin [Zocor]) 20 mg PO BEDTIME [facility] Pantoprazole Sodium (Pantoprazole 40 Mg Tab.Cr) 40 mg PO ACBREAKFAST [facility] Last Admin: 03/04/21 08:00 Dose: 40 mg Documented by: Sodium Chloride (Sodium Chloride 0.9% 10 Ml Syringe) 10 ml FLUSH ASDIRECTED PRN PRN Reason: Keep Vein Open Last Admin: 03/02/21 15:59 Dose: 10 ml Documented by: Venlafaxine HCl (Venlafaxine 75 Mg Cap.Er) 150 mg PO DAILY [facility] Last Admin: 03/04/21 09:19 Dose: 150 mg Documented by: - Exam General: Alert, Cooperative, No Acute Distress Lungs: Normal Respiratory Effort GI/Abdominal Exam: Soft, No Distention Extremities: No Pedal Edema Psy/Mental Status: Alert, Normal Affect - Patient Data Lab Results Last 24 hrs: Laboratory Results - last 24 hr 03/10/21 03/10/21 Range/Units 05:00 05:00 WBC 7.9 (4.5-11.0) K/uL RBC 4.17 (3.30-5.50) M/uL Hgb 12.5 (12.0-15.0) g/dL Hct 38.1 (36.0-48.0) % MCV 91 (80-98) fL MCH 30 (27-31) pg MCHC 33 (32-36) % Plt Count 402 H (150-400) K/uL Sodium 134 L (140-148) mmol/L Potassium 4.2 (3.6-5.2) mmol/L Chloride 101 (100-108) mmol/L Carbon Dioxide 25 (21-32) mmol/L Anion Gap 12.2 (5.0-14.0) mmol/L BUN 22 H (7-18) mg/dL Creatinine 1.2 H (0.6-1.0) mg/dL Est Cr Clr Drug Dosing 27.74 mL/min Estimated GFR (MDRD) 43 L (>60) Glucose 95 (74-106) mg/dL Calcium 8.9 (8.5-10.1) mg/dL Result Diagrams: 03/10/21 05:00 03/10/21 05:00 Sepsis Event Note - Evaluation Sepsis Screening Result: No Definite Risk - Focused Exam Vital Signs: Vital Signs Temp Pulse Pulse Resp BP BP Pulse Ox 03/10/21 10:30 35.7 C L 45 L 18 142/79 H 97 03/10/21 08:34 55 L 154/65 H 03/10/21 08:29 154/65 H 03/10/21 07:51 35.3 C L 55 L 18 154/65 H 94 L 03/10/21 03:13 36.6 C 52 L 16 129/74 97 - Problem List Review Problem List Initiated/Reviewed/Updated: Yes - Plan Plan:: ASSESSMENT AND PLAN - [id number] for the past 3 weeks, just tested positive 3 days prior to admission (02/28). I suspect her Covid illness was present at the beginning of February and this is a residual positive. Planning to continue isolation for 10 days from positive test. -Isolation through 03/10 and discontinue on 03/11 -No further intervention required at this time GENERALIZED WEAKNESS-this is likely multifactorial related to her progressive de mentia and recent COVID-19 infection. MRI of the brain showed moderate age- related atrophy. -Physical therapy -Sinusitis treatment complete SINUSITIS-evidence of acute infection noted on recent CT scan. -Antibiotic treatment complete ELEVATED TROPONIN-no evidence of acute DC on EKG. Mild elevation may be related to recent Covid infection. CHRONIC KIDNEY DISEASE STAGE IIIb-kidney function stable. PROGRESSIVE DEMENTIA-suspect Alzheimer's dementia with possible contribution from vascular dementia. No behavior issues. -Melatonin at bedtime MAINTENANCE ISSUES -DVT prophylaxis; enoxaparin 30 mg subcu daily -GI prophylaxis; not indicated -Granados catheter; not indicated -Nutrition; 2 g sodium diet ADMISSION STATUS-this patient will be admitted to observation status, expect no more than a one night hospital stay for evaluation and management of problems as outlined above. DISPOSITION-anticipate discharge to subacute rehab after the hospital stay. The plan is for her to go to the intermediate Thursday for subacute rehab. Isolation precautions will be discontinued tomorrow morning. Manuelito Shen MD
--- NOTE | 2021-03-10 15:54 | PCM.DCSUM1 ---
Discharge Summary - Hospital Course Brief History: 80-year-old female with history of Alzheimer's dementia, essential hypertension and stage III kidney disease who presented with weakness and increased confusion. She was admitted for management of weakness secondary to COVID-19 infection and acute sinusitis. Diagnosis: Stroke: No - Discharge Data Discharge Date: 03/10/21 Discharge Disposition: DC/Tfer to SNF 03 Condition: Fair - Referral to Home Health Primary Care Physician: PCP None - Discharge Diagnosis/Problem(s) (1) COVID-19 SNOMED Code(s): 356800220 ICD Code: U07.1 - COVID-19 Status: Acute Current Visit: Yes (2) Weakness SNOMED Code(s): 05557032 ICD Code: R53.1 - WEAKNESS Status: Acute Current Visit: Yes (3) Acute sinusitis SNOMED Code(s): 08174689 ICD Code: J01.90 - ACUTE SINUSITIS, UNSPECIFIED Status: Acute Current Visit: Yes Qualifiers: Sinusitis location: maxillary (4) Alzheimer's dementia SNOMED Code(s): 92248677 ICD Code: G30.9 - ALZHEIMER'S DISEASE, UNSPECIFIED; F02.80 - DEMENTIA IN OTH DISEASES CLASSD ELSWHR W/O BEHAVRL DISTURB Status: Chronic Current Visit: Yes Qualifiers: Alzheimer's disease onset: late-onset Dementia behavioral disturbance: without behavioral disturbance Qualified Code(s): G30.1 - Alzheimer's disease with late onset; F02.80 - Dementia in other diseases classified elsewhere without behavioral disturbance (5) HTN (hypertension) SNOMED Code(s): 27467326 ICD Code: I10 - ESSENTIAL (PRIMARY) HYPERTENSION Status: Chronic Current Visit: Yes Qualifiers: Hypertension type: primary hypertension Qualified Code(s): I10 - Essential (primary) hypertension (6) Spondylolisthesis, lumbar region SNOMED Code(s): 151592049571800 ICD Code: M43.16 - SPONDYLOLISTHESIS, LUMBAR REGION Status: Chronic Current Visit: No - Patient Summary/Data Consults: Consultations 03/03/21 16:49 PT Evaluation and Treatment [CONS] Routine Please Evaluate and Treat. PT Reason for Consult: Weakness This query below is only for informational purposes and is not editable. Admission Diagnosis/Problem: Weakness Hospital Course: Karime presented to the emergency room with progressive weakness in the setting of recent COVID-19 infection. Work-up in the emergency room did reveal acute sinusitis based on CT scan imaging. Work-up was otherwise benign. The patient was quite weak and not thought to be safe for outpatient management. She was admitted to observation with the hope that she could be either given enough strengthening exercises to go home or potentially go to a nursing home facility. She has completed adequate treatment for her sinusitis. She has not been hypoxic or had any fevers related to the Covid infection. She has done quite well throughout the course of the hospital stay with the exception of her weakness. She does continue to be quite weak and would benefit from subacute rehab for additional strengthening. There have been no behavior issues. Her appetite has been good. Her vital signs have all been stable. Laboratory studies fairly unremarkable. She is stable and safe for discharge at this time. - Patient Instructions Diet: Regular Diet as Tolerated Activity: As Tolerated Showering/Bathing: May Shower Other/Special Instructions: 1. You were in the hospital for management of weakness secondary to COVID-19 infection as well as acute maxillary sinusitis and generalized weakness. You have completed adequate isolation for the Covid infection at the time of discharge. You have completed adequate antibacterial therapy for the sinusitis. You remain weak and I do recommend discharge to a nursing home facility for subacute rehab. 2. Your discharge medications are outlined in the medication reconciliation form. 3. Referral to PT and OT to help improve both your strength and endurance as well as activities of daily living. 4. Code status - FULL CODE - Discharge Plan *PRESCRIPTION DRUG MONITORING PROGRAM REVIEWED*: No *COPY OF PRESCRIPTION DRUG MONITORING REPORT IN PATIENT MADIE: No Prescriptions/Med Rec: Acetaminophen/HYDROcodone [HYDROcodone-Acetaminophen 5-325 MG *] 1 tab PO BID PRN #60 tab PRN Reason: PAIN Melatonin 5 mg PO BEDTIME #30 tablet Acetaminophen [Tylenol] 650 mg PO Q4H PRN #100 tablet PRN Reason: Pain (Mild 1-3)/fever Home Medications: Home Meds Aspirin [Halfprin] 81 mg PO DAILY 01/05/13 [History] Cholecalciferol (Vitamin D3) [Vitamin D3] 1,000 unit PO DAILY 01/05/13 [History] Furosemide [Lasix] 20 mg PO DAILY PRN 01/05/13 [History] Omeprazole 20 mg PO DAILY 01/05/13 [History] Venlafaxine [Effexor XR] 150 mg PO DAILY 01/05/13 [History] Montelukast [Singulair] 10 mg PO DAILY 11/24/13 [History] Simvastatin [Zocor] 20 mg PO BEDTIME 11/24/13 [History] Allopurinol [Zyloprim] 100 mg PO DAILY 04/23/16 [History] Metoprolol Tartrate 25 mg PO BID 06/30/18 [History] Albuterol [Ventolin HFA] 1 - 2 inh INH Q4H PRN 02/01/20 [History] Gabapentin [Neurontin] 100 mg PO BID 02/01/20 [History] Losartan [Cozaar] 25 mg PO DAILY 08/29/20 [History] Acetaminophen [Tylenol] 650 mg PO Q4H PRN #100 tablet 03/10/21 [Rx] Acetaminophen/HYDROcodone [HYDROcodone-Acetaminophen 5-325 MG *] 1 tab PO BID PRN #60 tab 03/10/21 [Rx] Melatonin 5 mg PO BEDTIME #30 tablet 03/10/21 [Rx] Oxygen Therapy Mode: Room Air Patient Handouts: Fall Prevention in the Home, Adult, [id number], COVID-19, Weakness - Discharge Summary/Plan Comment DC Time >30 min.: Yes Total # of Minutes for Discharge Time: 40-new intermediate discharge - Patient Data Vitals - Most Recent: Last Vital Signs Temp 36.2 C 03/10/21 14:50 Pulse 52 L 03/10/21 14:50 Resp 18 03/10/21 14:50 BP 133/77 03/10/21 14:50 Pulse Ox 100 03/10/21 14:50 Weight - Most Recent: 61.037 kg I&O - Last 24 hours: Intake & Output 03/10/21 03/10/21 03/10/21 06:59 14:59 22:59 Intake Total 300 860 Output Total 400 Balance 300 460 Lab Results - Last 24 hrs: Laboratory Results - last 24 hr 03/10/21 03/10/21 Range/Units 05:00 05:00 WBC 7.9 (4.5-11.0) K/uL RBC 4.17 (3.30-5.50) M/uL Hgb 12.5 (12.0-15.0) g/dL Hct 38.1 (36.0-48.0) % MCV 91 (80-98) fL MCH 30 (27-31) pg MCHC 33 (32-36) % Plt Count 402 H (150-400) K/uL Sodium 134 L (140-148) mmol/L Potassium 4.2 (3.6-5.2) mmol/L Chloride 101 (100-108) mmol/L Carbon Dioxide 25 (21-32) mmol/L Anion Gap 12.2 (5.0-14.0) mmol/L BUN 22 H (7-18) mg/dL Creatinine 1.2 H (0.6-1.0) mg/dL Est Cr Clr Drug Dosing 27.74 mL/min Estimated GFR (MDRD) 43 L (>60) Glucose 95 (74-106) mg/dL Calcium 8.9 (8.5-10.1) mg/dL Med Orders - Current: Current Medications Acetaminophen (Acetaminophen 325 Mg Tab) 650 mg PO Q4H PRN PRN Reason: Pain (Mild 1-3)/fever Last Admin: 03/09/21 04:23 Dose: 650 mg Documented by: Hydrocodone Bitart/Acetaminophen (Acetaminophen/Hydrocodone 325-5 Mg Tab) 1 tab PO BID PRN PRN Reason: PAIN Albuterol (Albuterol 0.083% 2.5 Mg/3 Ml Neb Soln) 2.5 mg NEB Q4H PRN PRN Reason: Shortness Of Breath/wheezing Allopurinol (Allopurinol 100 Mg Ptom) 100 mg PO DAILY [facility] Last Admin: 03/10/21 08:37 Dose: 100 mg Documented by: Amoxicillin/Clavulanate Potassium (Amoxicillin/Clavulanate K 500-125 Mg Tab) 1 tab PO BID [facility] Last Admin: 03/10/21 08:24 Dose: 1 tab Documented by: Aspirin (Aspirin 81 Mg Tab.Ec) 81 mg PO DAILY [facility] Last Admin: 03/10/21 08:31 Dose: 81 mg Documented by: Atorvastatin Calcium (Atorvastatin 10 Mg Tab) 10 mg PO DAILY [facility] Last Admin: 03/10/21 08:38 Dose: 10 mg Documented by: Enoxaparin Sodium (Enoxaparin 30 Mg/0.3 Ml Syringe) 30 mg SUBCUT BEDTIME [facility] Last Admin: 03/09/21 20:58 Dose: 30 mg Documented by: Fluticasone Propionate (Fluticasone Propionate Nasal [place] 16 Gm Bottle) 0 gm NASBOTH DAILY [facility] Last Admin: 03/10/21 08:31 Dose: 1 spray Documented by: Gabapentin (Gabapentin 100 Mg Ptom) 100 mg PO BID [facility] Last Admin: 03/10/21 08:35 Dose: 100 mg Documented by: Lactobacillus Rhamnosus (Lactobacillus Rhamnosus Gg (Probiotic) Cap) 1 cap PO BID [facility] Last Admin: 03/10/21 08:30 Dose: 1 cap Documented by: Losartan Potassium (Losartan 25 Mg Ptom) 25 mg PO DAILY [facility] Last Admin: 03/10/21 08:29 Dose: 25 mg Documented by: Melatonin (Melatonin 3 Mg Tab) 9 mg PO BEDTIME [facility] Last Admin: 03/09/21 20:59 Dose: 9 mg Documented by: Metoprolol Tartrate (Metoprolol Tartrate 25 Mg Tab) 25 mg PO BID [facility] Last Admin: 03/10/21 08:34 Dose: 25 mg Documented by: Montelukast Sodium (Montelukast 10 Mg Tab) 10 mg PO QPM [facility] Last Admin: 03/09/21 16:29 Dose: 10 mg Documented by: Ondansetron HCl (Ondansetron 4 Mg/2 Ml Sdv) 4 mg IV Q4H PRN PRN Reason: Nausea/Vomiting Omeprazole 20mg (Ptom) 0 each PO ACBREAKFAST [facility] Last Admin: 03/10/21 08:23 Dose: 1 each Documented by: Venlafaxine 150mg (Ptom) 0 each PO DAILY [facility] Last Admin: 03/10/21 08:36 Dose: 1 each Documented by: Polyethylene Glycol (Polyethylene Glycol 3350 Powder 17 Gm Packet) 17 gm PO DAILY PRN PRN Reason: Constipation Last Admin: 03/06/21 14:29 Dose: 17 gm Documented by: Sodium Chloride (Sodium Chloride 0.9% 10 Ml Syringe) 10 ml FLUSH ASDIRECTED PRN PRN Reason: Keep Vein Open Discontinued Medications Albuterol (Albuterol 8 Gm Inhaler) 0 gm INH Q4H PRN PRN Reason: Shortness of Breath Allopurinol (Allopurinol 100 Mg Tab) 100 mg PO DAILY [facility] Last Admin: 03/04/21 09:17 Dose: 100 mg Documented by: Amoxicillin/Clavulanate Potassium (Amoxicillin/Clavulanate K 875-125 Mg Tab) 1 tab PO BID [facility] Last Admin: 03/04/21 09:17 Dose: 1 tab Documented by: Betamethasone Dipropionate (Betamethasone Dipropionate 0.05% Oint 15 Gm Tube) 0 gm TOP BID [facility] Last Admin: 03/03/21 12:51 Dose: Not Given Documented by: Cholecalciferol (Cholecalciferol (Vitamin D3) 25 Mcg Tab) 25 mcg PO DAILY [facility] Last Admin: 03/03/21 10:02 Dose: 25 mcg Documented by: Furosemide (Furosemide 40 Mg Tab) 20 mg PO DAILY PRN PRN Reason: Edema Gabapentin (Gabapentin 100 Mg Cap) 100 mg PO BID [facility] Last Admin: 03/04/21 09:17 Dose: 100 mg Documented by: Lactated Ringer's (Ringers, Lactated) 1,000 mls @ 0 mls/hr IV ASDIRECTED [facility] Last Admin: 03/02/21 16:02 Dose: 25 mls/hr Documented by: Ceftriaxone Sodium 1 gm/ (Sodium Chloride) 50 mls @ 100 mls/hr IV Q24H [facility] Loratadine (Loratadine 10 Mg Tab.Dis) 10 mg PO DAILY PRN PRN Reason: Allergies Losartan Potassium (Losartan 25 Mg Tab) 25 mg PO DAILY [facility] Last Admin: 03/04/21 09:18 Dose: 25 mg Documented by: Mupirocin (Mupirocin Oint 22 Gm Tube) 0 gm TOP TID PRN PRN Reason: Rash Non-Formulary Medication (Fluticasone Propionate [Flovent]) 2 sprays IH DAILY [facility] Last Admin: 03/03/21 12:57 Dose: Not Given Documented by: Non-Formulary Medication (Hydrocodone/Acetaminophen [Hydrocodon-Acetaminophen 5- 500]) 1 tab PO BID PRN PRN Reason: Pain Non-Formulary Medication (Loratadine [Claritin]) 10 mg PO DAILY PRN PRN Reason: Allergies Non-Formulary Medication (Omeprazole [Omeprazole]) 20 mg PO DAILY [facility] Last Admin: 03/03/21 18:03 Dose: Not Given Documented by: Non-Formulary Medication (Simvastatin [Zocor]) 20 mg PO BEDTIME [facility] Pantoprazole Sodium (Pantoprazole 40 Mg Tab.Cr) 40 mg PO ACBREAKFAST [facility] Last Admin: 03/04/21 08:00 Dose: 40 mg Documented by: Sodium Chloride (Sodium Chloride 0.9% 10 Ml Syringe) 10 ml FLUSH ASDIRECTED PRN PRN Reason: Keep Vein Open Last Admin: 03/02/21 15:59 Dose: 10 ml Documented by: Venlafaxine HCl (Venlafaxine 75 Mg Cap.Er) 150 mg PO DAILY [facility] Last Admin: 03/04/21 09:19 Dose: 150 mg Documented by:
[2021-03-10] MEDS: Montelukast 10 MG Tab PO SCH (17:40)
[2021-03-10] MEDS: Acetaminophen 325 MG Tab PO PRN (19:50)
[2021-03-10] MEDS: Melatonin 3 MG Tab PO SCH (20:11)
[2021-03-10] MEDS: Enoxaparin 30 MG/0.3 ML Syringe SUBCUT SCH (20:12)
[2021-03-11] MEDS: Aspirin 81 MG Tab.EC PO SCH (08:35)
[2021-03-11] MEDS: OMEPRAZOLE 20MG **PTOM PO SCH (08:35)
[2021-03-11] MEDS: Lactobacillus Rhamnosus GG (Probiotic) Cap PO SCH (08:35)
[2021-03-11] MEDS: Amoxicillin/Clavulanate K 500-125 MG Tab PO SCH (08:35)
[2021-03-11] MEDS: Fluticasone Propionate Nasal Spray 16 GM Bottle NASBOTH SCH (08:35)
[2021-03-11] MEDS: ALLOPURINOL 100 MG PO SCH (08:36)
[2021-03-11] MEDS: Gabapentin 100 MG **PTOM PO SCH (08:36)
[2021-03-11] MEDS: Metoprolol Tartrate 25 MG Tab PO SCH (08:37)
[2021-03-11] MEDS: Losartan 25 MG **PTOM PO SCH (08:37)
[2021-03-11] MEDS: atorvaSTATin 10 MG Tab PO SCH (08:38)
[2021-03-11] MEDS: VENLAFAXINE 150 MG PO SCH (08:38)
[2021-03-11 10:59] VITALS: BP 143/74; PULSE 68
== END 2021-03-11 12:37 ==
LOC: JP.ED 09:29 → JP.2SS 03-03 16:18
PROVIDERS: ADMIT Family Medicine; ATTEND Internal Medicine
DX: U07.1 COVID-19 (principal); J32.9 Chronic sinusitis, unspecified; E66.9 Obesity, unspecified; N18.32 Chronic kidney disease, stage 3b; R77.8 Other specified abnormalities of plasma proteins; G30.9 Alzheimer's disease, unspecified; F02.80 Dementia in other diseases classified elsewhere, unspecified severity, without behavioral disturbance, psychotic disturbance, mood disturbance, and anxiety; M43.16 Spondylolisthesis, lumbar region; I12.9 Hypertensive chronic kidney disease with stage 1 through stage 4 chronic kidney disease, or unspecified chronic kidney disease; Z88.8 Allergy status to other drugs, medicaments and biological substances; Z79.82 Long term (current) use of aspirin; Z79.899 Other long term (current) drug therapy; Z98.890 Other specified postprocedural states; Z68.25 Body mass index [BMI] 25.0-25.9, adult
CPT/HCPCS: 36415; 70551; 80048; 81001; 83605; 84484; 85025; 85027; 87086; 93306; 94762; 96372; 97110; 97140; 97162; 97530; 99285; A9270; G0378; J1650; J7120

== ENCOUNTER 2022-08-09 19:27 | Emergency (ER) | payer BC, MEDICARE ==
[2022-08-09 19:48] VITALS: BP 143/75; PULSE 100
[2022-08-09 20:28] LABS: BASOPHILS ABSOLUTE AUTO 0.05 K/uL (0.00-0.10); BASOPHILS PERCENT AUTO 0.7 % (0.1-1.3); EOSINOPHILS ABSOLUTE AUTO 0.14 K/uL (0.00-0.40); EOSINOPHILS PERCENT AUTO 1.9 % (0.0-5.4); HEMATOCRIT 38.7 % (34.3-46.0); IMMATURE GRAN PERCENT AUTO 0.3 % (0.0-0.7); LYMPHOCYTES ABSOLUTE AUTO 1.57 K/uL (0.8-3.3); LYMPHOCYTES PERCENT AUTO 21.4 % (11.4-47.7); MEAN CORPUSCULAR HEMOGLOBIN 32.1 pg (31.6-35.5); MEAN CORPUSCULAR HGB CONC 33.6 g/dL (31.6-35.5); MEAN CORPUSCULAR VOLUME 95.6 fL (81.4-99.0); MONOCYTES ABSOLUTE AUTO 0.53 K/uL (0.20-0.90); MONOCYTES PERCENT AUTO 7.2 % (3.3-12.6); NEUTROPHILS ABSOLUTE AUTO 5.02 K/uL (1.0-7.6); NEUTROPHILS PERCENT AUTO 68.5 % (40.0-78.1); PLATELET COUNT,PLT 253 K/uL (130-375); RED BLOOD CELL COUNT 4.05 M/uL (3.77-5.24); WHITE BLOOD CELL COUNT,WBC 7.3 K/uL (3.2-11.0)
[2022-08-09 20:41] LABS: IMMATURE GRAN ABSOLUTE AUTO 0.02 K/uL (0.00-0.23)
[2022-08-09 20:43] LABS: CALCIUM 8.7 mg/dL (8.5-10.1); CREATININE 1.6 mg/dL (0.6-1.0); EST CRCL DRUG DOSING (CG) 19.47 mL/min; POTASSIUM,K 3.8 mmol/L (3.6-5.2)
[2022-08-09 20:47] LABS: ANION GAP 12.8 mmol/L (5.0-14.0)
[2022-08-09 20:58] LABS: MAGNESIUM 2.3 mg/dL (1.8-2.4); TSH ULTRASENSITIVE 1.867 uIU/mL (0.358-3.740)
== END 2022-08-09 22:23 | disposition home or self-care (01) ==
LOC: JP.ED 19:27
DX: R40.4 Transient alteration of awareness (principal); K21.9 Gastro-esophageal reflux disease without esophagitis; I12.9 Hypertensive chronic kidney disease with stage 1 through stage 4 chronic kidney disease, or unspecified chronic kidney disease; N18.32 Chronic kidney disease, stage 3b; D63.1 Anemia in chronic kidney disease; E66.9 Obesity, unspecified; Z68.27 Body mass index [BMI] 27.0-27.9, adult; Z91.018 Allergy to other foods; Z79.82 Long term (current) use of aspirin; Z79.899 Other long term (current) drug therapy; Z86.16 Personal history of COVID-19
CPT/HCPCS: 36415; 70450; 80048; 82947; 83605; 83735; 84443; 85025; 93005; 93010; 99283; 99285

== ENCOUNTER 2023-01-27 06:39 | Day surgery (SDC) | payer MEDICARE ==
[~2023-01-27 06:39] MED LIST changes: -Bupivacaine 0.25% 10 ML SDV ONE; -Bupivacaine 0.5% 30 ML SDV ONE; +Dextrose 5%-Lactated Ringers 1,000 ML IV SCH; -methylPREDNISolone Acetate 40 MG/ML SDV ONE
[2023-01-27] MEDS ORDERED: Lactated Ringers 1,000 ML IV SCH (07:15)
[2023-01-27] MEDS ORDERED: Propofol 200 MG/20 ML SDV ONE (07:19)
[2023-01-27] MEDS ORDERED: fentaNYL 50 MCG/ML SDV ONE (07:19)
[2023-01-27 09:16] VITALS: BP 190/112; PULSE 69
== END 2023-01-27 09:45 | disposition home or self-care (01) ==
LOC: JP.SDS 06:39
PROVIDERS: ATTEND Family Medicine
DX: D12.5 Benign neoplasm of sigmoid colon (principal); K57.30 Diverticulosis of large intestine without perforation or abscess without bleeding; K90.0 Celiac disease; J44.9 Chronic obstructive pulmonary disease, unspecified; E11.22 Type 2 diabetes mellitus with diabetic chronic kidney disease; I12.9 Hypertensive chronic kidney disease with stage 1 through stage 4 chronic kidney disease, or unspecified chronic kidney disease; N18.30 Chronic kidney disease, stage 3 unspecified; K21.9 Gastro-esophageal reflux disease without esophagitis; Z91.018 Allergy to other foods
CPT/HCPCS: 45380; 88305; J2704; J3010; J7120

== ENCOUNTER 2023-05-10 17:02 | Emergency (ER) | payer MEDICARE ==
[2023-05-10 18:11] LABS: BASOPHILS ABSOLUTE AUTO 0.03 K/uL (0.00-0.10); BASOPHILS PERCENT AUTO 0.5 % (0.1-1.3); EOSINOPHILS ABSOLUTE AUTO 0.04 K/uL (0.00-0.40); EOSINOPHILS PERCENT AUTO 0.7 % (0.0-5.4); HEMOGLOBIN 14.6 g/dL (11.2-15.5); IMMATURE GRAN PERCENT AUTO 0.4 % (0.0-0.7); LYMPHOCYTES ABSOLUTE AUTO 0.93 K/uL (0.8-3.3); LYMPHOCYTES PERCENT AUTO 16.6 % (11.4-47.7); MEAN CORPUSCULAR HEMOGLOBIN 32.1 pg (31.6-35.5); MEAN CORPUSCULAR VOLUME 94.5 fL (81.4-99.0); MONOCYTES ABSOLUTE AUTO 0.58 K/uL (0.20-0.90); MONOCYTES PERCENT AUTO 10.4 % (3.3-12.6); NEUTROPHILS PERCENT AUTO 71.4 % (40.0-78.1); PLATELET COUNT,PLT 279 K/uL (130-375); RED BLOOD CELL COUNT 4.55 M/uL (3.77-5.24); WHITE BLOOD CELL COUNT,WBC 5.6 K/uL (3.2-11.0)
[2023-05-10 18:12] LABS: IMMATURE GRAN ABSOLUTE AUTO 0.02 K/uL (0.00-0.23)
[2023-05-10] MEDS: Sodium Chloride 0.9% 1,000 ML IV ONE (18:28)
[2023-05-10] MEDS: Sodium Chloride 0.9% 10 ML Syringe FLUSH PRN (18:29)
[2023-05-10 18:35] LABS: A/G RATIO 0.9 (1.2-2.2); ALANINE AMINOTRANSFERASE,ALT 35 U/L (12-78); ALBUMIN 3.7 g/dL (3.4-5.0); ALKALINE PHOSPHATASE 132 U/L (46-116); ANION GAP 17.3 mmol/L (5.0-14.0); ASPARTATE AMNIOTRANSFERASE,AST 40 U/L (15-37); BILIRUBIN TOTAL 0.3 mg/dL (0.2-1.0); BLOOD UREA NITROGEN,BUN 40 mg/dL (7-18); CALCIUM 8.4 mg/dL (8.5-10.1); CARBON DIOXIDE,CO2 22 mmol/L (21-32); CHLORIDE,CL 100 mmol/L (100-108); CREATININE 1.6 mg/dL (0.6-1.0); EST CRCL DRUG DOSING (CG) 19.14 mL/min; ESTIMATED GFR 32 mL/min (>60); GLUCOSE RANDOM 101 mg/dL (74-106); POTASSIUM,K 4.3 mmol/L (3.6-5.2); PROTEIN TOTAL,TP 7.8 g/dL (6.4-8.2); SODIUM,NA 135 mmol/L (140-148)
[2023-05-10 19:20] VITALS: BP 151/96; PULSE 84
[2023-05-10] MEDS: Loperamide 2 MG Cap PO ONE (19:20)
== END 2023-05-10 19:52 | disposition home or self-care (01) ==
LOC: JP.ED 17:02
DX: R19.7 Diarrhea, unspecified (principal); I10 Essential (primary) hypertension; K21.9 Gastro-esophageal reflux disease without esophagitis; E66.9 Obesity, unspecified; Z90.710 Acquired absence of both cervix and uterus; Z79.899 Other long term (current) drug therapy; Z79.82 Long term (current) use of aspirin; Z91.018 Allergy to other foods; Z68.28 Body mass index [BMI] 28.0-28.9, adult
CPT/HCPCS: 36415; 80053; 83605; 85025; 96360; 99283; 99284; A9270; J3490; J7030